=== PATIENT | male | born 1965 | race Caucasian/White ===

== ENCOUNTER 2023-05-21 10:58 | Inpatient (IN) | payer OTHER ==
[2023-05-21] MEDS ORDERED: KETOROLAC 15 MG/ML 1 ML VIAL IVP STA ×2 (11:57→12:55)
[2023-05-21] MEDS ORDERED: ONDANSETRON 4 MG/2 ML VIAL IVP STA (11:57)
[2023-05-21] MEDS ORDERED: HYDROmorphone 0.5 MG/0.5 ML SYRINGE IVP STA ×2 (11:57→12:56)
[2023-05-21] MEDS ORDERED: ACETAMINOPHEN TAB 325 MG TAB PO STA (11:57)
[2023-05-21] MEDS ORDERED: SODIUM CHLORIDE 0.9% 1,000 ML IV ONE ×2 (11:57→13:47)
--- NOTE | 2023-05-21 12:01 | ED ---
General Adult HPI - General Chief complaint: Neck Pain/Injury Stated complaint: back pain Time Seen by Provider: 05/21/23 11:20 Source: patient, RN notes reviewed Mode of arrival: ambulatory Limitations: no limitations - History of Present Illness Initial comments: This a 57-year-old male presents emergency Department with chief complaint of neck, left wrist pain, right knee pain. Patient states that he initially thought he just injured himself by falling into a hole. He felt that he started himself. Patient states she's been exhibiting viral type illness symptoms including fevers chills body aches. He is now complaining of left wrist, finger pain and swelling. Patient states she has a very stiff neck that hurts to move denies any symptoms headache. He complains of right knee pain and swelling. Patient has a history of diabetes. He denies any other system past medical history. Patient states nothing is helping his pain is been taken Motrin at home. - Related Data Home Medications Medication Instructions Recorded Confirmed No Known Home Medications 05/21/23 05/21/23 Allergies Allergy/AdvReac Type Severity Reaction Status Date / Time No Known Allergies Allergy Verified 05/21/23 16:28 Review of Systems ROS Statement: Those systems with pertinent positive or pertinent negative responses have been documented in the HPI. ROS Other: All systems not noted in ROS Statement are negative. Past Medical History Past Medical History: Diabetes Mellitus History of Any Multi-Drug Resistant Organisms: None Reported Past Surgical History: No Surgical Hx Reported Past Psychological History: No Psychological Hx Reported Smoking Status: Current every day smoker Past Alcohol Use History: Occasional Past Drug Use History: None Reported General Exam Limitations: no limitations General appearance: alert, in no apparent distress Head exam: Present: atraumatic, normocephalic, normal inspection Eye exam: Present: normal appearance, PERRL, EOMI. Absent: scleral icterus, conjunctival injection, periorbital swelling ENT exam: Present: normal exam, normal oropharynx, mucous membranes moist Neck exam: Present: normal inspection, tenderness. Absent: meningismus, full ROM (Pain with range of motion), lymphadenopathy Respiratory exam: Present: normal lung sounds bilaterally. Absent: respiratory distress, wheezes, rales, rhonchi, stridor Cardiovascular Exam: Present: normal rhythm, tachycardia, normal heart sounds. Absent: systolic murmur, diastolic murmur, rubs, gallop, clicks GI/Abdominal exam: Present: soft, normal bowel sounds. Absent: distended, tenderness, guarding, rebound, rigid Extremities exam: Present: other (Left wrist, finger swelling noted no erythema, right knee swelling and tenderness palpation) Neurological exam: Present: alert, oriented X3, CN II-XII intact, reflexes normal. Absent: motor sensory deficit Skin exam: Present: warm, dry, intact, normal color. Absent: rash Course Vital Signs 05/21/23 05/21/23 05/21/23 11:01 12:22 12:23 Temperature 97.8 F 100.6 F H Pulse Rate 112 H Respiratory 20 Rate Blood Pressure 146/62 152/90 O2 Sat by Pulse 100 100 Oximetry 05/21/23 05/21/23 05/21/23 13:00 14:00 15:00 Temperature 99.0 F Pulse Rate Respiratory Rate Blood Pressure 152/90 147/89 126/78 O2 Sat by Pulse 100 96 98 Oximetry 05/21/23 16:00 Temperature 98.4 F Pulse Rate Respiratory Rate Blood Pressure 125/80 O2 Sat by Pulse 100 Oximetry Medical Decision Making - Medical Decision Making Was pt. sent in by a medical professional or institution (, PA, CERTIFIED NOVELL ENGINEER, urgent care, hospital, or intermediate...) When possible be specific @ -No Did you speak to anyone other than the patient for history (EMS, parent, family, police, friend...)? What history was obtained from this source @ -No Did you review nursing and triage notes (agree or disagree)? Why? @ -I reviewed and agree with nursing and triage notes Were old charts reviewed (outside hosp., previous admission, EMS record, old EKG, old radiological studies, urgent care reports/EKG's, intermediate records)? Report findings @ -No old charts were reviewed Differential Diagnosis (chest pain, altered mental status, abdominal pain women, abdominal pain men, vaginal bleeding, weakness, fever, dyspnea, syncope, headache, dizziness, GI bleed, back pain, seizure, CVA, palpatations, mental health, musculoskeletal)? @ -nDifferential Fever: Pneumonia, viral URI, endocarditis, myocarditis, pericarditis, otitis, sinusitis, peritonsillar Abscess, retropharyngeal Abscess, epiglottitis, peritonitis, appendicitis, Jazmyn cystitis, diverticulitis, hepatitis, colitis, UTI, , pyelonephritis, prostatitis, epididymitis, meningitis, encephalitis, pulmonary embolism, CVA, thyroid storm, pancreatitis, adrenal crisis, cavernous sinus thrombosis, this is not meant to be an all-inclusive list. ble EKG interpreted by me (3pts min.). @ -As above X-rays interpreted by me (1pt min.). @ -None done CT interpreted by me (1pt min.). @ -None done U/S interpreted by me (1pt. min.). @ -None done What testing was considered but not performed or refused? (CT, X-rays, U/S, labs)? Why? @ -None What meds were considered but not given or refused? Why? @ -None Did you discuss the management of the patient with other professionals (professionals i.e. , PA, CERTIFIED NOVELL ENGINEER, lab, RT, psych nurse, social organization professor, restoration silversmith, teacher, energy control officer, geriatric case manager)? Give summary @ -Dr. Diego admission given patient's clinical presentation. Was smoking cessation discussed for >3mins.? @ -No Was critical care preformed (if so, how long)? @ -No Were there social determinants of health that impacted care today? How? (Homelessness, low income, unemployed, alcoholism, drug addiction, transportation, low edu. Level, literacy, decrease access to med. care, fci, rehab)? @ -No Was there de-escalation of care discussed even if they declined (Discuss DNR or withdrawal of care, Hospice)? DNR status @ -No What co-morbidities impacted this encounter? (DM, HTN, Smoking, COPD, CAD, Cancer, CVA, ARF, Chemo, Hep., AIDS, mental health diagnosis, sleep apnea, morbid obesity)? @ -Diabetes Was patient admitted / discharged? Hospital course, mention meds given and rou te, prescriptions, significant lab abnormalities, going to OR and other pertinent info. @ -Admitted patient is noted to have fever, significant leukocytosis, lactic acidosis. Patient has multiple joint pain and swelling this may be post infectious inflammatory versus other concerns. Patient will be admitted for observation and further workup Undiagnosed new problem with uncertain prognosis? @ -No Drug Therapy requiring intensive monitoring for toxicity (Heparin, Nitro, Insulin, Cardizem)? @ -No Were any procedures done? @ -No Diagnosis/symptom? @ -Postinfectious polyarthralgia Acute, or Chronic, or Acute on Chronic? @ -Acute Uncomplicated (without systemic symptoms) or Complicated (systemic symptoms)? @ -Complicated. Side effects of treatment? @ -No Exacerbation, Progression, or Severe Exacerbation? @ -No Poses a threat to life or bodily function? How? (Chest pain, [place], [place], pneumonia, PE, COPD, DKA, ARF, appy, cholecystitis, CVA, Diverticulitis, Homicidal, Suicidal, threat to staff... and all critical care pts) @ -No - Lab Data Result diagrams: 05/21/23 12:05 05/21/23 12:05 Lab Results 05/21/23 05/21/23 05/21/23 Range/Units 12:05 12:05 12:05 WBC 15.2 H (3.8-10.6) k/uL RBC 5.31 (4.30-5.90) m/uL Hgb 16.7 (13.0-17.5) gm/dL Hct 45.7 (39.0-53.0) % MCV 86.1 (80.0-100.0) fL MCH 31.5 (25.0-35.0) pg MCHC 36.5 (31.0-37.0) g/dL RDW 12.9 (11.5-15.5) % Plt Count 270 (150-450) k/uL MPV 8.1 Neutrophils % 88 % Lymphocytes % 6 % Monocytes % 4 % Eosinophils % 1 % Basophils % 0 % Neutrophils # 13.5 H (1.3-7.7) k/uL Lymphocytes # 0.8 L (1.0-4.8) k/uL Monocytes # 0.7 (0-1.0) k/uL Eosinophils # 0.1 (0-0.7) k/uL Basophils # 0.1 (0-0.2) k/uL Sodium 132 L (137-145) mmol/L Potassium 3.8 (3.5-5.1) mmol/L Chloride 96 L (98-107) mmol/L Carbon Dioxide 18 L (22-30) mmol/L Anion Gap 18 mmol/L BUN 16 (9-20) mg/dL Creatinine 0.61 L (0.66-1.25) mg/dL Est GFR (CKD-EPI)AfAm >90 (>60 ml/min/1.73 sqM) Est GFR (CKD-EPI)NonAf >90 (>60 ml/min/1.73 sqM) Glucose 295 H (74-99) mg/dL Lactic Ac Sepsis Rflx Plasma Lactic Acid Adin 2.2 H* (0.7-2.0) mmol/L Calcium 9.7 (8.4-10.2) mg/dL Total Bilirubin 1.3 (0.2-1.3) mg/dL AST 27 (17-59) U/L ALT 45 (4-49) U/L Alkaline Phosphatase 164 H (38-126) U/L Total Protein 7.5 (6.3-8.2) g/dL Albumin 4.1 (3.5-5.0) g/dL Urine Color Urine Appearance (Clear) Urine pH (5.0-8.0) Ur Specific [place] (1.001-1.035) Urine Protein (Negative) Urine Glucose (UA) (Negative) Urine Ketones (Negative) Urine Blood (Negative) Urine Nitrite (Negative) Urine Bilirubin (Negative) Urine Urobilinogen (<2.0) mg/dL Ur Leukocyte Esterase (Negative) Urine RBC (0-5) /hpf Urine WBC (0-5) /hpf Urine Mucus (None) /hpf Heterophile Antibody (Negative) Influenza Type A (PCR) (Not Detectd) Influenza Type B (PCR) (Not Detectd) RSV (PCR) (Not Detectd) SARS-CoV-2 (PCR) (Not Detectd) Group A Strep (PCR) (Not Detectd) 05/21/23 05/21/23 05/21/23 Range/Units 12:05 12:05 12:22 WBC (3.8-10.6) k/uL RBC (4.30-5.90) m/uL Hgb (13.0-17.5) gm/dL Hct (39.0-53.0) % MCV (80.0-100.0) fL MCH (25.0-35.0) pg MCHC (31.0-37.0) g/dL RDW (11.5-15.5) % Plt Count (150-450) k/uL MPV Neutrophils % % Lymphocytes % % Monocytes % % Eosinophils % % Basophils % % Neutrophils # (1.3-7.7) k/uL Lymphocytes # (1.0-4.8) k/uL Monocytes # (0-1.0) k/uL Eosinophils # (0-0.7) k/uL Basophils # (0-0.2) k/uL Sodium (137-145) mmol/L Potassium (3.5-5.1) mmol/L Chloride (98-107) mmol/L Carbon Dioxide (22-30) mmol/L Anion Gap mmol/L BUN (9-20) mg/dL Creatinine (0.66-1.25) mg/dL Est GFR (CKD-EPI)AfAm (>60 ml/min/1.73 sqM) Est GFR (CKD-EPI)NonAf (>60 ml/min/1.73 sqM) Glucose (74-99) mg/dL Lactic Ac Sepsis Rflx Plasma Lactic Acid Adin (0.7-2.0) mmol/L Calcium (8.4-10.2) mg/dL Total Bilirubin (0.2-1.3) mg/dL AST (17-59) U/L ALT (4-49) U/L Alkaline Phosphatase (38-126) U/L Total Protein (6.3-8.2) g/dL Albumin (3.5-5.0) g/dL Urine Color Urine Appearance (Clear) Urine pH (5.0-8.0) Ur Specific [place] (1.001-1.035) Urine Protein (Negative) Urine Glucose (UA) (Negative) Urine Ketones (Negative) Urine Blood (Negative) Urine Nitrite (Negative) Urine Bilirubin (Negative) Urine Urobilinogen (<2.0) mg/dL Ur Leukocyte Esterase (Negative) Urine RBC (0-5) /hpf Urine WBC (0-5) /hpf Urine Mucus (None) /hpf Heterophile Antibody Negative (Negative) Influenza Type A (PCR) Not Detected (Not Detectd) Influenza Type B (PCR) Not Detected (Not Detectd) RSV (PCR) Not Detected (Not Detectd) SARS-CoV-2 (PCR) Not Detected (Not Detectd) Group A Strep (PCR) NOT DETECTED (Not Detectd) 05/21/23 05/21/23 05/21/23 Range/Units 12:33 13:06 15:00 WBC (3.8-10.6) k/uL RBC (4.30-5.90) m/uL Hgb (13.0-17.5) gm/dL Hct (39.0-53.0) % MCV (80.0-100.0) fL MCH (25.0-35.0) pg MCHC (31.0-37.0) g/dL RDW (11.5-15.5) % Plt Count (150-450) k/uL MPV Neutrophils % % Lymphocytes % % Monocytes % % Eosinophils % % Basophils % % Neutrophils # (1.3-7.7) k/uL Lymphocytes # (1.0-4.8) k/uL Monocytes # (0-1.0) k/uL Eosinophils # (0-0.7) k/uL Basophils # (0-0.2) k/uL Sodium (137-145) mmol/L Potassium (3.5-5.1) mmol/L Chloride (98-107) mmol/L Carbon Dioxide (22-30) mmol/L Anion Gap mmol/L BUN (9-20) mg/dL Creatinine (0.66-1.25) mg/dL Est GFR (CKD-EPI)AfAm (>60 ml/min/1.73 sqM) Est GFR (CKD-EPI)NonAf (>60 ml/min/1.73 sqM) Glucose (74-99) mg/dL Lactic Ac Sepsis Rflx Y Plasma Lactic Acid Adin 1.1 (0.7-2.0) mmol/L Calcium (8.4-10.2) mg/dL Total Bilirubin (0.2-1.3) mg/dL AST (17-59) U/L ALT (4-49) U/L Alkaline Phosphatase (38-126) U/L Total Protein (6.3-8.2) g/dL Albumin (3.5-5.0) g/dL Urine Color Yellow Urine Appearance Clear (Clear) Urine pH 5.5 (5.0-8.0) Ur Specific [place] 1.035 (1.001-1.035) Urine Protein 1+ H (Negative) Urine Glucose (UA) 4+ H (Negative) Urine Ketones 4+ H (Negative) Urine Blood Small H (Negative) Urine Nitrite Negative (Negative) Urine Bilirubin Negative (Negative) Urine Urobilinogen 2.0 (<2.0) mg/dL Ur Leukocyte Esterase Negative (Negative) Urine RBC 1 (0-5) /hpf Urine WBC 6 H (0-5) /hpf Urine Mucus Rare H (None) /hpf Heterophile Antibody (Negative) Influenza Type A (PCR) (Not Detectd) Influenza Type B (PCR) (Not Detectd) RSV (PCR) (Not Detectd) SARS-CoV-2 (PCR) (Not Detectd) Group A Strep (PCR) (Not Detectd) Disposition Clinical Impression: Polyarthritis, inflammatory, Fever of unknown origin Disposition: ADMITTED IP TO THIS HOSP Referrals: [facility],Clinic [Primary Care Provider] - 1-2 days Time of Disposition: 16:15
[2023-05-21 12:24] LABS: Basophils # (A) 0.1 k/uL (0-0.2); Basophils % (A) 0 %; Eosinophils # (A) 0.1 k/uL (0-0.7); Eosinophils % (A) 1 %; HCT 45.7 % (39.0-53.0); HGB 16.7 gm/dL (13.0-17.5); Lymphocytes # (A) 0.8 k/uL (1.0-4.8); Lymphocytes % (A) 6 %; MCH 31.5 pg (25.0-35.0); MCHC 36.5 g/dL (31.0-37.0); MCV 86.1 fL (80.0-100.0); Mean Platelet Volume 8.1; Monocytes # (A) 0.7 k/uL (0-1.0); Monocytes % (A) 4 %; Neutrophils # (A) 13.5 k/uL (1.3-7.7); Neutrophils % (A) 88 %; Platelet Count 270 k/uL (150-450); RBC 5.31 m/uL (4.30-5.90); RDW 12.9 % (11.5-15.5); WBC 15.2 k/uL (3.8-10.6)
[2023-05-21 12:30] LABS: ALT 45 U/L (4-49); AST 27 U/L (17-59); African American GFR (CKD) >90 (>60 ml/min/1.73 sqM); Albumin 4.1 g/dL (3.5-5.0); Alkaline Phosphatase 164 U/L (38-126); Anion Gap 18 mmol/L; Blood Urea Nitrogen 16 mg/dL (9-20); Calcium 9.7 mg/dL (8.4-10.2); Carbon Dioxide 18 mmol/L (22-30); Chloride 96 mmol/L (98-107); Glucose 295 mg/dL (74-99); Non-African American GFR(CKD) >90 (>60 ml/min/1.73 sqM); Potassium 3.8 mmol/L (3.5-5.1); Sodium 132 mmol/L (137-145); Total Bilirubin 1.3 mg/dL (0.2-1.3); Total Protein 7.5 g/dL (6.3-8.2)
[2023-05-21] MEDS ORDERED: ORPHENADRINE 30 MG/ML 2 ML VIAL IVP STA (12:56)
[2023-05-21 13:28] LABS: Appearance,Urine Clear (Clear); Bilirubin,Urine Negative (Negative); Blood,Urine Small (Negative); Color,Urine Yellow; Glucose,Urine (UA) 4+ (Negative); Leukocyte Esterase,Urine Negative (Negative); Mucus,Urine Rare /hpf; Nitrite,Urine Negative (Negative); PH, Urine 5.5 (5.0-8.0); Protein,Urine 1+ (Negative); RBC,Urine 1 /hpf (0-5); Specific Gravity,Urine 1.035 (1.001-1.035); WBC,Urine 6 /hpf (0-5)
[2023-05-21 13:30] LABS: Ketones,Urine 4+ (Negative)
[2023-05-21] MEDS ORDERED: ACETAMINOPHEN TAB 325 MG TAB PO PRN (16:15)
[2023-05-21] MEDS ORDERED: ONDANSETRON 4 MG/2 ML VIAL IVP PRN (16:15)
[2023-05-21] MEDS ORDERED: NALOXONE 0.4 MG/ML 1 ML VIAL IV PRN (16:15)
[2023-05-21] MEDS: SODIUM CHLORIDE 0.9% 1,000 ML IV SCH (16:32)
[2023-05-21] MEDS: KETOROLAC 15 MG/ML 1 ML VIAL IVP PRN (18:31)
--- NOTE | 2023-05-21 18:39 | P.HPIM ---
History of Present Illness H&P Date: 05/21/23 Chief Complaint: neck pain, polyarthralgia, fevers 57-year-old man with a medical history of uncontrolled diabetes with reported A1c of 10.8% isn't on any home medications presented for evaluation of polyarthralgias, neck pain, fevers. Patient says that 10 days ago he had an episode in which he slipped off a ladder and had a fall in which he hurt his legs. Since that time he started to develop gradual onset of neck pain which was sharp in nature and this radiated down his left arm than started to radiate down his right arm and into the pectoral region. He further started to develop hospital appetite, fevers, sweats, and 2 days ago started to notice swelling of his right knee, left dorsal aspect of his hands, elbows. He denies any rashes. He does report chills. He denies nausea, vomiting. He does report loss of appetite. He reports constipation. He denies cough, dyspnea, chest pain, palpitations, syncopal, presyncope, abdominal pain, diarrhea. He denies numbness/weakness of extremities. In the emergency room, patient was afebrile, 127/83, heart rate 114, 98% on room air. CBC demonstrated leukocytosis of 15.2, predominantly neutrophils. Basic metabolic panel showed sodium of 132, chloride of 96, CO2 of 18, anion gap was 18, BUN was 16, creatinine is 0.61. Glucose is 295. Liver function tests showed alkaline phosphatase elevation of 164. ESR was 62, CRP was 23.6. UA showed 1+ protein, 4+ glucose, 4+ ketones, small amount of blood, 6 white blood cells, 1 red blood cell. Influenza A, B, RSV, Covid, group A strep were all negative. Heterophile antibody was negative. Case is discussed with the emergency room provider and decision was made to admit the patient to observation for further diagnostic workup. All Systems reviewed and pertinent positives and negatives noted in HPI, all other symptoms are negative Gen: in no apparent distress, resting comfortably in bed Eyes: PERRL, no scleral injection or icterus HENT: normocephalic, atraumatic, good hearing acuity, moist mucous membranes Neck: no tracheal deviation, full range of motion Resp: good air exchange, breathing comfortably with no accessory muscle use, no tactile fremitus, bilateral crackles in the bases CVS: good distal perfusion x 4, no pitting edema, regular rate and rhythm without murmurs GI: soft, NTTP, ND, no hepatosplenomegaly : no suprapubic tenderness, no CVAT, sanchez catheter not present MSK: no clubbing, no cyanosis, no noted contractures of extremities, Skin: no noted rashes, petechiae; temperature of skin is appropriate Neuro: moving all extremities without signs of weakness, CN II-XII intact Psych: cooperative, euthymic mood, insight and judgment intact Labs and Imaging as above Assessment: Fevers Neck Pain Polyarthralgia Leukocytosis Elevated ESR/CRP Diabetes, uncontrolled Plan: Vital signs reviewed and noted in the HPI Lab work reviewed and noted in the HPI Case was discussed with the Emergency Room provider and decision was made to admit the patient for fevers, neck pain, polyarthralgias The differential is broad: Infectious versus rheumatologic issues Ordered gonococcal urine, HIV Ordered blood cultures Ordered complement C3, C4, CH 50, SHAMIKA Ordered Lyme antibodies Chest x-ray ordered EKG ordered I will hold off on antibiotics at this time until workup is complete Pain control: Toradol 15 mg IV push every 6 hours when necessary, Addison 5/325 every 4 hours when necessary, Tylenol 650 mg every 6 when necessary Bowel regimen: Senokot-S 1 tab twice a day, MiraLAX 17 g daily PT/OT Patient is Full Code Past Medical History Past Medical History: Diabetes Mellitus History of Any Multi-Drug Resistant Organisms: None Reported Past Surgical History: No Surgical Hx Reported Past Psychological History: No Psychological Hx Reported Smoking Status: Current every day smoker Past Alcohol Use History: Occasional Past Drug Use History: None Reported Medications and Allergies Home Medications Medication Instructions Recorded Confirmed Type No Known Home Medications 05/21/23 05/21/23 History Allergies Allergy/AdvReac Type Severity Reaction Status Date / Time No Known Allergies Allergy Verified 05/21/23 16:28 Physical Exam Osteopathic Statement: *. No significant issues noted on an osteopathic struct ural exam other than those noted in the History and Physical/Consult. Vitals: Vital Signs Temp Pulse Resp BP Pulse Ox 05/21/23 17:00 98.6 F 74 16 110/80 05/21/23 16:00 98.4 F 125/80 100 05/21/23 15:00 126/78 98 05/21/23 14:00 147/89 96 05/21/23 13:00 99.0 F 152/90 100 05/21/23 12:23 100.6 F H 05/21/23 12:22 152/90 100 05/21/23 11:01 97.8 F 112 H 20 146/62 100 Intake and Output 05/21/23 05/21/23 05/21/23 06:59 14:59 22:59 Other: Weight 96.162 kg Results CBC & Chem 7: 05/21/23 12:05 05/21/23 12:05 Labs: Abnormal Lab Results - Last 24 Hours (Table) 05/21/23 05/21/23 05/21/23 Range/Units 12:05 12:05 12:05 WBC 15.2 H (3.8-10.6) k/uL Neutrophils # 13.5 H (1.3-7.7) k/uL Lymphocytes # 0.8 L (1.0-4.8) k/uL ESR (0-15) mm/hr Sodium 132 L (137-145) mmol/L Chloride 96 L (98-107) mmol/L Carbon Dioxide 18 L (22-30) mmol/L Creatinine 0.61 L (0.66-1.25) mg/dL Glucose 295 H (74-99) mg/dL Plasma Lactic Acid Adin 2.2 H* (0.7-2.0) mmol/L Alkaline Phosphatase 164 H (38-126) U/L C-Reactive Protein (<1.0) mg/dL Urine Protein (Negative) Urine Glucose (UA) (Negative) Urine Ketones (Negative) Urine Blood (Negative) Urine WBC (0-5) /hpf Urine Mucus (None) /hpf 05/21/23 05/21/23 05/21/23 Range/Units 12:05 13:06 16:31 WBC (3.8-10.6) k/uL Neutrophils # (1.3-7.7) k/uL Lymphocytes # (1.0-4.8) k/uL ESR 62 H (0-15) mm/hr Sodium (137-145) mmol/L Chloride (98-107) mmol/L Carbon Dioxide (22-30) mmol/L Creatinine (0.66-1.25) mg/dL Glucose (74-99) mg/dL Plasma Lactic Acid Adin (0.7-2.0) mmol/L Alkaline Phosphatase (38-126) U/L C-Reactive Protein 23.6 H (<1.0) mg/dL Urine Protein 1+ H (Negative) Urine Glucose (UA) 4+ H (Negative) Urine Ketones 4+ H (Negative) Urine Blood Small H (Negative) Urine WBC 6 H (0-5) /hpf Urine Mucus Rare H (None) /hpf
--- NOTE | 2023-05-21 19:21 | XR ---
EXAMINATION TYPE: XR chest 2V DATE OF EXAM: 05/21/2023 6:55 PM COMPARISON: None TECHNIQUE: XR chest 2V Frontal and lateral views of the chest. CLINICAL INDICATION:Male, 57 years old with history of Crackles; FINDINGS: Lungs/Pleura: Increased densities are seen projecting over the spine lateral view. There is no eviden ce of pleural effusion, focal consolidation, or pneumothorax. Pulmonary vascularity: Unremarkable. Heart/mediastinum: Cardiomediastinal silhouette is unremarkable. Musculoskeletal: No acute osseous pathology. IMPRESSION: Lower lobe pneumonia seen best appreciated on lateral view compatible with pneumonia..
--- NOTE | 2023-05-21 19:43 | XR ---
EXAMINATION TYPE: XR cervical spine comp DATE OF EXAM: 05/21/2023 7:17 PM INDICATION: Patient age:Male; 57 years old; Reason for study: neck pain; PHH. COMPARISON: None TECHNIQUE: The cervical spine was imaged in frontal, lateral, odontoid and bilateral oblique. FINDINGS: The osseous structures show normal alignment without evidence of an acute fracture. There are osteoph ytes noted throughout the cervical spine on the anterior and lateral aspects of the vertebral bodies. The intervertebral disk spaces are narrowed at multiple levels. Pedicles are intact. Soft tissues a re within normal limits. The odontoid appears intact. IMPRESSION: 1. No fracture or dislocation. 2. Moderate degenerative disc disease changes of the cervical spine.
[2023-05-21] MEDS: HYDROcodone/APAP 5-325MG 1 EACH TAB PO PRN (19:56)
[2023-05-21] MEDS: SENNOSIDES-DOCUSATE SODIUM 1 EACH TAB PO SCH (19:57)
[2023-05-21 20:40] LABS: Glucose,Whole Blood 351 mg/dL (70-110)
[2023-05-21] MEDS ORDERED: INSULIN ASPART (NovoLOG) 100 UNIT/ML VIAL SQ ONE (21:37)
[2023-05-21] MEDS ORDERED: MORPHINE SULFATE 2 MG/ML SYRINGE IVP STA (22:00)
[2023-05-22 02:42] LABS: Glucose,Whole Blood 287 mg/dL (70-110)
[2023-05-22] MEDS: SODIUM CHLORIDE 0.9% 1,000 ML IV SCH (06:01)
[2023-05-22] MEDS: KETOROLAC 15 MG/ML 1 ML VIAL IVP PRN ×2 (06:02→12:27)
[2023-05-22 07:22] LABS: Glucose,Whole Blood 275 mg/dL (70-110)
[2023-05-22] MEDS ORDERED: INSULIN ASPART (NovoLOG) 100 UNIT/ML VIAL SQ SCH (07:30)
[2023-05-22] MEDS: INSULIN ASPART (NovoLOG) 100 UNIT/ML VIAL SQ SCH ×7 (08:28→20:59)
[2023-05-22] MEDS: SENNOSIDES-DOCUSATE SODIUM 1 EACH TAB PO SCH ×2 (08:28→20:59)
[2023-05-22] MEDS: polyethylene glycoL 3350 17 GM POWD.PACK PO SCH (08:29)
[2023-05-22 09:14] LABS: Hepatitis B Core IgM Nonreactive; Hepatitis B Surface Antigen Nonreactive; Hepatitis C IgG Antibody Nonreactive
[2023-05-22] MEDS ORDERED: AZITHROMYCIN 500 MG in SODIUM CHLORIDE 0.9% 250 ML IVPB SCH (09:15)
[2023-05-22 09:24] LABS: Hepatitis A Antibody IgM Nonreactive
[2023-05-22 10:50] LABS: Cyclic Citrull Pep IgG Unit <1.5 U/mL (<=3.9); Cyclic Citrullinated Pep IgG Negative
[2023-05-22] MEDS: HYDROcodone/APAP 5-325MG 1 EACH TAB PO PRN ×3 (11:10→20:56)
--- NOTE | 2023-05-22 11:37 | P.PN ---
Subjective Progress Note Date: 05/22/23 Pt has no new complaints. Pain is better but still present. Had fevers up to 101.2. CXR shows LLL pneumonia Gen: in no apparent distress, resting comfortably in bed Eyes: PERRL, no scleral injection or icterus HENT: normocephalic, atraumatic, good hearing acuity, moist mucous membranes Neck: no tracheal deviation, full range of motion Resp: good air exchange, breathing comfortably with no accessory muscle use, no tactile fremitus, bilateral crackles in the bases CVS: good distal perfusion x 4, no pitting edema, regular rate and rhythm without murmurs GI: soft, NTTP, ND, no hepatosplenomegaly : no suprapubic tenderness, no CVAT, sanchez catheter not present MSK: no clubbing, no cyanosis, no noted contractures of extremities, Skin: no noted rashes, petechiae; temperature of skin is appropriate Neuro: moving all extremities without signs of weakness, CN II-XII intact Psych: cooperative, euthymic mood, insight and judgment intact Hospital Course: 57-year-old man with a medical history of uncontrolled diabetes with reported A1c of 10.8% isn't on any home medications presented for evaluation of polyarthralgias, neck pain, fevers. In the emergency room, patient was afebrile, 127/83, heart rate 114, 98% on room air. CBC demonstrated leukocytosis of 15.2, predominantly neutrophils. Basic metabolic panel showed sodium of 132, chloride of 96, CO2 of 18, anion gap was 18, BUN was 16, c reatinine is 0.61. Glucose is 295. Liver function tests showed alkaline phosphatase elevation of 164. ESR was 62, CRP was 23.6. UA showed 1+ protein, 4+ glucose, 4+ ketones, small amount of blood, 6 white blood cells, 1 red blood cell. Influenza A, B, RSV, Covid, group A strep were all negative. Heterophile antibody was negative. Case is discussed with the emergency room provider and decision was made to admit the patient to observation for further diagnostic workup. Assessment: Community Acquired Pneumonia Neck Pain Polyarthralgia Leukocytosis Elevated ESR/CRP Diabetes, uncontrolled Plan: RF is 15, CCP is < 1.5 (negative), C3/C4 reviewed and normal. Lyme 0.639, negative Treponema non-reactive Hep B/C negative. CXR personally interpreted, retrocardiac opacity on left Cervical spine XR = DDD The differential is broad: Infectious versus rheumatologic issues Ordered gonococcal urine, HIV pending Ordered blood cultures pending SHAMIKA pending Start ceftriaxone/azithromycin for pneumonia Pain control: Toradol 15 mg IV push every 6 hours when necessary, [place] 5/325 every 4 hours when necessary, Tylenol 650 mg every 6 when necessary Bowel regimen: Senokot-S 1 tab twice a day, MiraLAX 17 g daily PT/OT Patient is Full Code Objective - Vital Signs Vital signs: Vital Signs Temp 98.6 F 05/22/23 11:15 Pulse 120 H 05/22/23 11:15 Resp 18 05/22/23 11:15 BP 132/79 05/22/23 11:15 Pulse Ox 92 L 05/22/23 11:15 FiO2 Intake & Output 05/21/23 05/22/23 05/22/23 18:59 06:59 18:59 Intake Total 240 Output Total 450 300 Balance -210 -300 Weight 96.162 kg Intake: Oral 240 Output: Urine 450 300 Other: Voiding Method Toilet Toilet # Voids 1 - Labs CBC & Chem 7: 05/21/23 12:05 05/21/23 12:05 Labs: Abnormal Lab Results - Last 24 Hours (Table) 05/21/23 05/21/23 05/21/23 Range/Units 12:05 12:05 12:05 WBC 15.2 H (3.8-10.6) k/uL Neutrophils # 13.5 H (1.3-7.7) k/uL Lymphocytes # 0.8 L (1.0-4.8) k/uL ESR (0-15) mm/hr Sodium 132 L (137-145) mmol/L Chloride 96 L (98-107) mmol/L Carbon Dioxide 18 L (22-30) mmol/L Creatinine 0.61 L (0.66-1.25) mg/dL Glucose 295 H (74-99) mg/dL POC Glucose (mg/dL) (70-110) mg/dL Plasma Lactic Acid Adin 2.2 H* (0.7-2.0) mmol/L Alkaline Phosphatase 164 H (38-126) U/L C-Reactive Protein (<1.0) mg/dL Urine Protein (Negative) Urine Glucose (UA) (Negative) Urine Ketones (Negative) Urine Blood (Negative) Urine WBC (0-5) /hpf Urine Mucus (None) /hpf 05/21/23 05/21/23 05/21/23 Range/Units 12:05 13:06 16:31 WBC (3.8-10.6) k/uL Neutrophils # (1.3-7.7) k/uL Lymphocytes # (1.0-4.8) k/uL ESR 62 H (0-15) mm/hr Sodium (137-145) mmol/L Chloride (98-107) mmol/L Carbon Dioxide (22-30) mmol/L Creatinine (0.66-1.25) mg/dL Glucose (74-99) mg/dL POC Glucose (mg/dL) (70-110) mg/dL Plasma Lactic Acid Adin (0.7-2.0) mmol/L Alkaline Phosphatase (38-126) U/L C-Reactive Protein 23.6 H (<1.0) mg/dL Urine Protein 1+ H (Negative) Urine Glucose (UA) 4+ H (Negative) Urine Ketones 4+ H (Negative) Urine Blood Small H (Negative) Urine WBC 6 H (0-5) /hpf Urine Mucus Rare H (None) /hpf 05/21/23 05/22/23 05/22/23 Range/Units 20:38 02:34 07:21 WBC (3.8-10.6) k/uL Neutrophils # (1.3-7.7) k/uL Lymphocytes # (1.0-4.8) k/uL ESR (0-15) mm/hr Sodium (137-145) mmol/L Chloride (98-107) mmol/L Carbon Dioxide (22-30) mmol/L Creatinine (0.66-1.25) mg/dL Glucose (74-99) mg/dL POC Glucose (mg/dL) 351 H 287 H 275 H (70-110) mg/dL Plasma Lactic Acid Adin (0.7-2.0) mmol/L Alkaline Phosphatase (38-126) U/L C-Reactive Protein (<1.0) mg/dL Urine Protein (Negative) Urine Glucose (UA) (Negative) Urine Ketones (Negative) Urine Blood (Negative) Urine WBC (0-5) /hpf Urine Mucus (None) /hpf
[2023-05-22 11:53] LABS: Glucose,Whole Blood 249 mg/dL (70-110)
[2023-05-22 14:28] LABS: BUN/Creat Ratio 20.14 Ratio (12.00-20.00); Blood Urea Nitrogen 14.1 mg/dL (9.0-27.0); Calcium 8.5 mg/dL (8.7-10.3); Carbon Dioxide 15.6 mmol/L (21.6-31.8); Chloride 103 mmol/L (96-109); Glucose 272 mg/dL (70-110); Magnesium 1.9 mg/dL (1.5-2.4); Sodium 136 mmol/L (135-145)
[2023-05-22] MEDS ORDERED: VANCOMYCIN IV PER PHARMACY 1 EACH MISC MISCELLANE PRN (14:50)
[2023-05-22 14:56] LABS: Basophils # (A) 0.08 X 10*3/uL (0.00-0.10); Basophils % (A) 0.5 %; Eosinophils # (A) 0.01 X 10*3/uL (0.04-0.35); Eosinophils % (A) 0.1 %; HCT 39.1 % (39.6-50.0); HGB 13.4 d/dL (13.0-17.0); Lymphocytes # (A) 0.97 X 10*3/uL (0.90-5.00); Lymphocytes % (A) 5.7 %; MCH 30.2 pg (27.0-32.0); MCHC 34.3 d/dL (32.0-37.0); MCV 88.1 FL (80.0-97.0); Mean Platelet Volume 10.6 FL (9.5-12.2); Monocytes # (A) 1.26 X 10*3/uL (0.20-1.00); Monocytes % (A) 7.4 %; NRBC Per 100 WBC 0 X 10*3/uL (0.00-0.01); Neutrophils # (A) 14.45 X 10*3/uL (1.80-7.70); Neutrophils % (A) 85.3 %; Platelet Count 325 X 10*3/uL (140-440); RBC 4.44 X 10*6/uL (4.40-5.60); RDW 12.7 % (11.5-14.5); WBC 16.94 X 10*3/uL (4.50-10.00)
[2023-05-22] MEDS ORDERED: VANCOMYCIN 1,500 MG in SODIUM CHLORIDE 0.9% 500 ML 500 ML IVPB SCH (16:00)
[2023-05-22 16:27] LABS: HIV 2 AB Non-Reactive (Non-Reactive); HIV AB P24 Non-Reactive (Non-Reactive); HIV P24 AG Non-Reactive (Non-Reactive)
--- NOTE | 2023-05-22 16:59 | CA ---
Transthoracic Echo Report Name: Jose Lara Age: 57 Gender: M : 1965 Exam Date: 05/22/2023 15:14 Exam Location: [facility] Ht (in): 72 Wt (lb): 212 Ordering Physician: Jerry Diego MD Attending/Referring Phys: Communications Technician Katerine Haque [facility] Procedure CPT: Indications: bacteremia Cardiac Hx: Technical Quality: Technically difficult study Contrast 1: [place] Total Dose (mL): 1 Contrast 2: Total Dose (mL): MEASUREMENTS (Male / Female) Normal Values 2D ECHO LV Diastolic Diameter PLAX 5.1 cm 4.2 - 5.9 / 3.9 - 5.3 cm LV Systolic Diameter PLAX 4.1 cm IVS Diastolic Thickness 0.9 cm 0.6 - 1.0 / 0.6 - 0.9 cm LVPW Diastolic Thickness 0.8 cm 0.6 - 1.0 / 0.6 - 0.9 cm LV Relative Wall Thickness 0.3 LV Diastolic Volume MOD BP 164.0 cm??? 67 - 155 / 56 - 104 cm??? LV Systolic Volume MOD BP 99.3 cm??? 22 - 58 / 19 - 49 cm??? LV Ejection Fraction MOD BP 39.5 % >= 55 % LV Cardiac Index MOD BP 3628.1 cm???/min???m??? LV Diastolic Volume MOD 4C 169.1 cm??? LV Systolic Volume MOD 4C 103.1 cm??? LV Ejection Fraction MOD 4C 39.0 % LV Cardiac Index MOD 4C 3703.1 cm???/min???m??? LV Diastolic Length 4C 8.8 cm LV Systolic Length 4C 8.0 cm LV Diastolic Volume MOD 2C 154.0 cm??? LV Systolic Volume MOD 2C 97.2 cm??? LV Ejection Fraction MOD 2C 36.9 % LV Cardiac Index MOD 2C 3182.7 cm???/min???m??? LV Diastolic Length 2C 8.5 cm LV Systolic Length 2C 7.9 cm Ascending Aorta Diameter 2.8 cm M-MODE Aortic Root Diameter MM 2.8 cm LA Systolic Diameter MM 4.7 cm LA Ao Ratio MM 1.6 AV Cusp Separation MM 2.3 cm DOPPLER AV Peak Velocity 108.5 cm/s AV Peak Gradient 4.7 mmHg AV Mean Velocity 84.6 cm/s AV Mean Gradient 3.1 mmHg AV Velocity Time Integral 16.7 cm LVOT Peak Velocity 82.0 cm/s LVOT Peak Gradient 2.7 mmHg LVOT Velocity Time Integral 14.2 cm Mitral E Point Velocity 45.6 cm/s Mitral A Point Velocity 55.2 cm/s Mitral E to A Ratio 0.8 MV Deceleration Time 113.1 ms LV E' Lateral Velocity 8.4 cm/s Mitral E to LV E' Lateral Ratio 5.4 LV E' Septal Velocity 7.7 cm/s Mitral E to LV E' Septal Ratio 5.9 TR Peak Velocity 244.4 cm/s TR Peak Gradient 23.9 mmHg Right Atrial Pressure 15.0 mmHg Pulmonary Artery Systolic Pressu 38.9 mmHg Right Ventricular Systolic Press 38.9 mmHg FINDINGS Left Ventricle Mildly increased left ventricular diastolic volume. Severely increased left ventricular systolic volume. Moderately decreased left ventricular ejection fraction. Left ventricular wall thickness normal. Left ventricular ejection fraction is estimated at 30-35%. [place] hypokinetic. Hypokinetic mid-apical inferior wall. Right Ventricle Moderate right ventricular dilatation. Mild pulmonary hypertension. Right Atrium Normal right atrial size. Left Atrium Normal left atrial size. Mitral Valve Structurally normal mitral valve. Trace mitral regurgitation. No evidence of vegetation on the mitral valve. Aortic Valve Aortic valve not well visualized. No aortic regurgitation. No evidence of vegetation on the aortic valve. Tricuspid Valve Structurally normal tricuspid valve. Trace tricuspid regurgitation. No evidence of tricuspid valve vegetation. Pulmonic Valve Pulmonic valve not well visualized. Pericardium No pericardial effusion. Aorta Normal size aortic root and proximal ascending aorta. CONCLUSIONS Technically suboptimal study secondary to poor echo windows There is severe LV systolic dysfunction with an ejection fraction of 30-35% with hypokinesis(involving the apex Consider transesophageal echo to definitively rule out vegetation Mild pulmonary hypertension Previewed by: Dr. Hussain Sanchez MD (Electronically Signed) Final Date: 22 May 2023 16:59
[2023-05-22 17:11] LABS: Glucose,Whole Blood 174 mg/dL (70-110)
[2023-05-22 20:41] LABS: Glucose,Whole Blood 136 mg/dL (70-110)
--- NOTE | 2023-05-22 22:05 | P.CONS ---
History of Present Illness - Reason for Consult Consult date: 05/22/23 - History of Present Illness Patient is a 57-year male with a past medical history significant for diabetes mellitus currently everyday smoker patient did have a fall from a ladder about 10 days ago with the patient fell and hurt his legs since then the patient did have gradual onset of neck pain with some radiation to the left arm as well as into the right pectoral region patient's symptom has been getting wor se also developing decreased appetite fever sweats and started having a cough which has been mild to moderate intensity with occasional sputum production patient denies any nausea vomiting no abdominal pain or any diarrhea patient on presentation to the hospital did have a fever 100.6 F and did have another fever of 101.7 F at 2 in the morning patient was tachycardic mildly hypoxic within for supplemental oxygen, patient did have a white count of 16.94 with a left shift creatinine has been 0.7 urine has been negative HIV hepatitis B C Lyme and treponema influenza and COVID testing were negative patient did have blood cultures drawn come back positive with gram-positive cocci that has promp haven this infectious disease consultation patient did have a chest x-ray no lobar pneumonia but seen on the lateral view x-ray of cervical spine no fracture or dislocation moderate degenerative disc disease, patient is currently on a combination of ceftriaxone and vancomycin Zithromax was discontinued Past Medical History Past Medical History: Diabetes Mellitus History of Any Multi-Drug Resistant Organisms: None Reported Past Surgical History: No Surgical Hx Reported Past Psychological History: No Psychological Hx Reported Smoking Status: Current every day smoker Past Alcohol Use History: Occasional Past Drug Use History: None Reported Medications and Allergies Home Medications Medication Instructions Recorded Confirmed Type No Known Home Medications 05/21/23 05/21/23 History Allergies Allergy/AdvReac Type Severity Reaction Status Date / Time No Known Allergies Allergy Verified 05/21/23 16:28 Physical Exam Vitals: Vital Signs Temp Pulse Pulse Resp BP BP Pulse Ox 05/22/23 11:15 98.6 F 120 H 18 132/79 92 L 05/22/23 07:17 98.4 F 110 H 18 111/70 94 L 05/22/23 03:29 98.1 F 110 H 93 L 05/22/23 02:31 101.7 F H 138 H 18 143/80 90 L 05/21/23 20:07 18 05/21/23 18:54 99 F 116 H 18 129/79 99 05/21/23 18:06 98.3 F 114 H 18 127/83 98 05/21/23 17:00 98.6 F 74 16 110/80 Intake and Output 05/22/23 05/22/23 05/22/23 06:59 14:59 22:59 Intake Total 240 Output Total 450 300 Balance -210 -300 Intake: Oral 240 Output: Urine 450 300 Other: Voiding Method Toilet Results CBC & Chem 7: 05/22/23 06:16 05/22/23 06:16 Labs: Abnormal Lab Results - Last 24 Hours (Table) 05/21/23 05/21/23 05/21/23 Range/Units 12:05 16:31 20:38 WBC (4.50-10.00) X 10*3/uL Hct (39.6-50.0) % Neutrophils # (1.80-7.70) X 10*3/uL Monocytes # (0.20-1.00) X 10*3/uL Eosinophils # (0.04-0.35) X 10*3/uL ESR 62 H (0-15) mm/hr Carbon Dioxide (21.6-31.8) mmol/L Anion Gap (4.00-12.00) mmol/L BUN/Creatinine Ratio (12.00-20.00) Ratio Glucose (70-110) mg/dL POC Glucose (mg/dL) 351 H (70-110) mg/dL Calcium (8.7-10.3) mg/dL C-Reactive Protein 23.6 H (<1.0) mg/dL 05/22/23 05/22/23 05/22/23 Range/Units 02:34 06:16 06:16 WBC 16.94 H (4.50-10.00) X 10*3/uL Hct 39.1 L (39.6-50.0) % Neutrophils # 14.45 H (1.80-7.70) X 10*3/uL Monocytes # 1.26 H (0.20-1.00) X 10*3/uL Eosinophils # 0.01 L (0.04-0.35) X 10*3/uL ESR (0-15) mm/hr Carbon Dioxide 15.6 L (21.6-31.8) mmol/L Anion Gap 17.40 H (4.00-12.00) mmol/L BUN/Creatinine Ratio 20.14 H (12.00-20.00) Ratio Glucose 272 H (70-110) mg/dL POC Glucose (mg/dL) 287 H (70-110) mg/dL Calcium 8.5 L (8.7-10.3) mg/dL C-Reactive Protein (<1.0) mg/dL 05/22/23 05/22/23 Range/Units 07:21 11:52 WBC (4.50-10.00) X 10*3/uL Hct (39.6-50.0) % Neutrophils # (1.80-7.70) X 10*3/uL Monocytes # (0.20-1.00) X 10*3/uL Eosinophils # (0.04-0.35) X 10*3/uL ESR (0-15) mm/hr Carbon Dioxide (21.6-31.8) mmol/L Anion Gap (4.00-12.00) mmol/L BUN/Creatinine Ratio (12.00-20.00) Ratio Glucose (70-110) mg/dL POC Glucose (mg/dL) 275 H 249 H (70-110) mg/dL Calcium (8.7-10.3) mg/dL C-Reactive Protein (<1.0) mg/dL Microbiology - Last 24 Hours (Table) 05/21/23 12:15 Blood Culture Gram Stain - Preliminary Blood Assessment and Plan Plan: 1patient presented to hospital with sepsis in this patient with a fever tachycardia now with evidence of gram-positive bacteremia as well as possible pneumonia, patient also complaining of significant pain to the neck area however he did have a history of fall x-rays were negative if any evidence of persistent bacteremia may need further work-up to rule out possible cervical spine disease. 2blood cultures will be repeated and will check inflammatory markers 3-discontinue Rocephin and vancomycin 4-start the patient cefazolin 2 g every 8 hours We will follow on clinical condition and cultures to further adjust medication if needed Thank you for this consultation we will follow the patient along with you Dictation was produced using [employer] dictation software. please excuse any grammatical, word or spelling errors. Time with Patient: Greater than 30
[2023-05-23] MEDS: KETOROLAC 15 MG/ML 1 ML VIAL IVP PRN (01:14)
[2023-05-23] MEDS: SODIUM CHLORIDE 0.9% 1,000 ML IV SCH ×2 (01:18→13:18)
[2023-05-23 06:43] LABS: ALT 34 U/L (4-49); AST 67 U/L (17-59); African American GFR (CKD) >90 (>60 ml/min/1.73 sqM); Albumin 2.7 g/dL (3.5-5.0); Alkaline Phosphatase 117 U/L (38-126); Anion Gap 10 mmol/L; Blood Urea Nitrogen 17 mg/dL (9-20); Calcium 8.3 mg/dL (8.4-10.2); Carbon Dioxide 19 mmol/L (22-30); Chloride 105 mmol/L (98-107); Globulin 2.6 g/dL; Glucose 178 mg/dL (74-99); Non-African American GFR(CKD) >90 (>60 ml/min/1.73 sqM); Potassium 3.9 mmol/L (3.5-5.1); Sodium 134 mmol/L (137-145); Total Bilirubin 0.7 mg/dL (0.2-1.3); Total Protein 5.3 g/dL (6.3-8.2)
[2023-05-23 06:59] LABS: C Reactive Protein 23.5 mg/dL (<1.0)
[2023-05-23 07:09] LABS: Glucose,Whole Blood 194 mg/dL (70-110)
[2023-05-23] MEDS ORDERED: HYDROmorphone 0.5 MG/0.5 ML SYRINGE IVP STA (08:26)
[2023-05-23] MEDS: HYDROcodone/APAP 5-325MG 1 EACH TAB PO SCH ×5 (08:49→23:08)
[2023-05-23] MEDS: INSULIN ASPART (NovoLOG) 100 UNIT/ML VIAL SQ SCH ×7 (08:52→21:28)
[2023-05-23] MEDS: polyethylene glycoL 3350 17 GM POWD.PACK PO SCH (09:00)
[2023-05-23] MEDS: SENNOSIDES-DOCUSATE SODIUM 1 EACH TAB PO SCH ×2 (09:00→19:50)
[2023-05-23 09:12] LABS: Basophils # (A) 0.09 X 10*3/uL (0.00-0.10); Basophils % (A) 0.4 %; Eosinophils # (A) 0.03 X 10*3/uL (0.04-0.35); Eosinophils % (A) 0.1 %; HCT 37.5 % (39.6-50.0); HGB 13.1 d/dL (13.0-17.0); Lymphocytes # (A) 1.08 X 10*3/uL (0.90-5.00); Lymphocytes % (A) 5.2 %; MCH 30.3 pg (27.0-32.0); MCHC 34.9 d/dL (32.0-37.0); MCV 86.8 FL (80.0-97.0); Mean Platelet Volume 10.1 FL (9.5-12.2); Monocytes # (A) 1.43 X 10*3/uL (0.20-1.00); Monocytes % (A) 6.9 %; NRBC Per 100 WBC 0 X 10*3/uL (0.00-0.01); Neutrophils # (A) 17.93 X 10*3/uL (1.80-7.70); Neutrophils % (A) 86.5 %; Platelet Count 373 X 10*3/uL (140-440); RBC 4.32 X 10*6/uL (4.40-5.60); RDW 12.6 % (11.5-14.5); WBC 20.74 X 10*3/uL (4.50-10.00)
[2023-05-23] MEDS: METOPROLOL TARTRATE 25 MG TAB PO SCH ×2 (09:32→19:47)
--- NOTE | 2023-05-23 10:44 | P.PN ---
Subjective Progress Note Date: 05/23/23 Pt having uncontrolled pain in neck and hand. has stiff neck and cannot move up and down without significant pain. Plan for TAWNY and MRI today. Gen: in no apparent distress, resting comfortably in bed Eyes: PERRL, no scleral injection or icterus HENT: normocephalic, atraumatic, good hearing acuity, moist mucous membranes Neck: no tracheal deviation, full range of motion Resp: good air exchange, breathing comfortably with no accessory muscle use, no tactile fremitus, bilateral crackles in the bases CVS: good distal perfusion x 4, no pitting edema, regular rate and rhythm without murmurs GI: soft, NTTP, ND, no hepatosplenomegaly : no suprapubic tenderness, no CVAT, sanchez catheter not present MSK: no clubbing, no cyanosis, no noted contractures of extremities, Skin: no noted rashes, petechiae; temperature of skin is appropriate Neuro: moving all extremities without signs of weakness, CN II-XII intact Psych: cooperative, euthymic mood, insight and judgment intact Hospital Course: 57-year-old man with a medical history of uncontrolled diabetes with reported A1c of 10.8% isn't on any home medications presented for evaluation of polyarthralgias, neck pain, fevers. In the emergency room, patient was afebrile, 127/83, heart rate 114, 98% on room air. CBC demonstrated leukocytosis of 15.2, predominantly neutrophils. Basic metabolic panel showed sodium of 132, chloride of 96, CO2 of 18, anion gap was 18, BUN was 16, creatinine is 0.61. Glucose is 295. Liver function tests showed alkaline phosphatase elevation of 164. ESR was 62, CRP was 23.6. UA showed 1+ protein, 4+ glucose, 4+ ketones, small amount of blood, 6 white blood cells, 1 red blood cell. Influenza A, B, RSV, Covid, group A strep were all negative. Heterophile antibody was negative. Case is discussed with the emergency room provider and decision was made to admit the patient to observation for further diagnostic workup. Assessment: Community Acquired Pneumonia MSSA Bacteremia Neck Pain - possible osteo vs abscess Polyarthralgia Leukocytosis Elevated ESR/CRP Diabetes, uncontrolled Plan: BCx growing MSSA in 2/2 bottles. Repeat ordered, pending ID consulted yesterday, note reviewed, abx switched to cefazolin Discussed with cardiology, plan for TAWNY today to r/o vegetation MRI cervical spine ordered HIV negative SHAMIKA negative Continue cefazolin 1g q8h Pain control: Toradol 15 mg IV push every 6 hours when necessary, [place] 5/325 every 4 hours schedled, Tylenol 650 mg every 6 when necessary; added 0.5mg IV push of dilaudid once Bowel regimen: Senokot-S 1 tab twice a day, MiraLAX 17 g daily PT/OT Patient is Full Code Objective - Vital Signs Vital signs: Vital Signs Temp 98.2 F 05/23/23 08:00 Pulse 129 H 05/23/23 08:00 Resp 20 05/23/23 08:00 BP 138/83 05/23/23 08:00 Pulse Ox 90 L 05/23/23 08:00 FiO2 Intake & Output 05/22/23 05/23/23 05/23/23 18:59 06:59 18:59 Output Total 300 325 Balance -300 -325 Output: Urine 300 325 Other: Voiding Method Toilet Toilet # Voids 1 # Bowel Movements 0 - Labs CBC & Chem 7: 05/23/23 05:24 05/23/23 05:24 Labs: Abnormal Lab Results - Last 24 Hours (Table) 05/22/23 05/22/23 05/22/23 Range/Units 06:16 06:16 11:52 WBC 16.94 H (4.50-10.00) X 10*3/uL RBC (4.40-5.60) X 10*6/uL Hct 39.1 L (39.6-50.0) % Neutrophils # 14.45 H (1.80-7.70) X 10*3/uL Monocytes # 1.26 H (0.20-1.00) X 10*3/uL Eosinophils # 0.01 L (0.04-0.35) X 10*3/uL Sodium (137-145) mmol/L Carbon Dioxide 15.6 L (21.6-31.8) mmol/L Anion Gap 17.40 H (4.00-12.00) mmol/L Creatinine (0.66-1.25) mg/dL BUN/Creatinine Ratio 20.14 H (12.00-20.00) Ratio Glucose 272 H (70-110) mg/dL POC Glucose (mg/dL) 249 H (70-110) mg/dL Calcium 8.5 L (8.7-10.3) mg/dL AST (17-59) U/L C-Reactive Protein (<1.0) mg/dL Total Protein (6.3-8.2) g/dL Albumin (3.5-5.0) g/dL Procalcitonin (0.02-0.09) ng/mL 05/22/23 05/22/23 05/23/23 Range/Units 17:07 20:39 05:24 WBC (4.50-10.00) X 10*3/uL RBC (4.40-5.60) X 10*6/uL Hct (39.6-50.0) % Neutrophils # (1.80-7.70) X 10*3/uL Monocytes # (0.20-1.00) X 10*3/uL Eosinophils # (0.04-0.35) X 10*3/uL Sodium 134 L (137-145) mmol/L Carbon Dioxide 19 L (21.6-31.8) mmol/L Anion Gap (4.00-12.00) mmol/L Creatinine 0.61 L (0.66-1.25) mg/dL BUN/Creatinine Ratio (12.00-20.00) Ratio Glucose 178 H (70-110) mg/dL POC Glucose (mg/dL) 174 H 136 H (70-110) mg/dL Calcium 8.3 L (8.7-10.3) mg/dL AST 67 H (17-59) U/L C-Reactive Protein 23.5 H (<1.0) mg/dL Total Protein 5.3 L (6.3-8.2) g/dL Albumin 2.7 L (3.5-5.0) g/dL Procalcitonin (0.02-0.09) ng/mL 05/23/23 05/23/23 05/23/23 Range/Units 05:24 05:24 07:06 WBC 20.74 H (4.50-10.00) X 10*3/uL RBC 4.32 L (4.40-5.60) X 10*6/uL Hct 37.5 L (39.6-50.0) % Neutrophils # 17.93 H (1.80-7.70) X 10*3/uL Monocytes # 1.43 H (0.20-1.00) X 10*3/uL Eosinophils # 0.03 L (0.04-0.35) X 10*3/uL Sodium (137-145) mmol/L Carbon Dioxide (21.6-31.8) mmol/L Anion Gap (4.00-12.00) mmol/L Creatinine (0.66-1.25) mg/dL BUN/Creatinine Ratio (12.00-20.00) Ratio Glucose (70-110) mg/dL POC Glucose (mg/dL) 194 H (70-110) mg/dL Calcium (8.7-10.3) mg/dL AST (17-59) U/L C-Reactive Protein (<1.0) mg/dL Total Protein (6.3-8.2) g/dL Albumin (3.5-5.0) g/dL Procalcitonin 0.48 H (0.02-0.09) ng/mL Microbiology - Last 24 Hours (Table) 05/21/23 12:15 Blood Culture Gram Stain - Preliminary Blood
--- NOTE | 2023-05-23 10:45 | P.CRDCN ---
History of Present Illness History of present illness: HISTORY OF PRESENT ILLNESS: This is a 57-year-old male with a past medical history significant for nicotine dependence and diabetes. 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 We have been asked to see the patient in consultation for cardiomyopathy and TAWNY. Maurisio t examined at the bedside. Patient presented to the hospital with a chief complaint of generalized pain. He states he has been having pain all over his entire body that started 2 weeks ago. He currently denies any shortness of breath. He reports chest soreness this morning. He denies any dizziness or lightheadedness. He denies any previous cardiac history. He is a current cigar smoker and smokes less than 1 pack per day. He reports alcohol use twice a month. He denies any drug use including marijuana. The patient was found to have sepsis and has been running fevers. WBC today 20.74. He is being treated with IV antibiotics. Blood cultures are positive for gram-positive cocci in c nano. * Chest xray lower lobe pneumonia * Laboratory data: WBC 20.74. Hemoglobin 13.1. Platelet count 373. Sodium 134. Potassium 3.9. BUN 17. Creatinine 0.61. * Current home cardiac medications include none * Echocardiogram completed revealing ejection fraction 30-35% with hypokinesis of the apex and mid apical inferior wall and mild pulmonary hypertension REVIEW OF SYSTEMS: At the time of my exam: CONSTITUTIONAL: Denies fever or chills. HEENT: Denies blurred vision, vision changes, or eye pain. Denies hemoptysis CARDIOVASCULAR: Denies chest pain. Denies orthopnea. Denies PND. Denies palpitations RESPIRATORY: Denies shortness of breath. GASTROINTESTINAL: Denies abdominal pain. Denies nausea or vomiting. HEMATOLOGIC: Denies bleeding disorders. GENITOURINARY: Denies any blood in urine. SKIN: Denies pruitis. Denies rash. PHYSICAL EXAM: VITAL SIGNS: Reviewed. GENERAL: Well-developed in no acute distress. HEENT: Head is normocephalic. Pupils are equal, round. Sclerae anicteric. Mucous membranes of the mouth are moist. Neck supple. No JVD or thyromegaly LUNGS: Respirations even and unlabored. Lungs with rhonchi on the right. HEART: Regular rate and rhythm. S1 and S2 heard. ABDOMEN: Soft. Nondistended. Nontender. EXTREMITIES: Normal range of motion. No clubbing or cyanosis. Peripheral pulses intact. No lower extremity edema NEUROLOGIC: Awake and alert. Oriented x 3. ASSESSMENT: Generalized pain Neck pain Pneumonia Sepsis with leukocytosis, fever, and tachycardia Bacteremia, blood cultures positive for gram-positive cocci in clusters Cardiomyopathy, unknown if ischemic or nonischemic Diabetes, uncontrolled Nicotine dependence PLAN: Continue antibiotics per infectious disease Begin aspirin 81 mg daily, atorvastatin 20 mg at night, lisinopril 2.5 mg daily, and metoprolol tartrate 25 mg twice a day Patient will need workup regarding cardiomyopathy when his acute issues have resolved Patient to undergo TAWNY today with Dr. Sanchez Further recommendations pending patient course Nurse practitioner note has been reviewed by physician. Signing provider agrees with the documented findings, assessment, and plan of care. Past Medical History Past Medical History: Diabetes Mellitus History of Any Multi-Drug Resistant Organisms: None Reported Past Surgical History: No Surgical Hx Reported Past Psychological History: No Psychological Hx Reported Smoking Status: Current every day smoker Past Alcohol Use History: Occasional Past Drug Use History: None Reported Medications and Allergies Home Medications Medication Instructions Recorded Confirmed Type No Known Home Medications 05/21/23 05/21/23 History Allergies Allergy/AdvReac Type Severity Reaction Status Date / Time No Known Allergies Allergy Verified 05/21/23 16:28 Physical Exam Vitals: Vital Signs Temp Pulse Resp BP Pulse Ox 05/23/23 02:00 98.3 F 117 H 18 120/72 92 L 05/22/23 20:00 18 05/22/23 19:33 99.3 F 132 H 18 135/77 92 L 05/22/23 11:15 98.6 F 120 H 18 132/79 92 L Intake and Output 05/22/23 05/23/23 05/23/23 22:59 06:59 14:59 Output Total 125 200 Balance -125 -200 Output: Urine 125 200 Other: Voiding Method Toilet # Voids 1 # Bowel Movements 0 Results 05/23/23 05:24 05/23/23 05:24 Cardiac Enzymes 05/23/23 Range/Units 05:24 AST 67 H (17-59) U/L CBC 05/22/23 Range/Units 06:16 WBC 16.94 H (4.50-10.00) X 10*3/uL RBC 4.44 (4.40-5.60) X 10*6/uL Hgb 13.4 (13.0-17.0) d/dL Hct 39.1 L (39.6-50.0) % Plt Count 325 (140-440) X 10*3/uL Comprehensive Metabolic Panel 05/22/23 05/23/23 Range/Units 06:16 05:24 Sodium 136 134 L (135-145) mmol/L Potassium 4.0 3.9 (3.5-5.5) mmol/L Chloride 103 105 (96-109) mmol/L Carbon Dioxide 15.6 L 19 L (21.6-31.8) mmol/L BUN 14.1 17 (9.0-27.0) mg/dL Creatinine 0.7 0.61 L (0.6-1.5) mg/dL Glucose 272 H 178 H (70-110) mg/dL Calcium 8.5 L 8.3 L (8.7-10.3) mg/dL AST 67 H (17-59) U/L ALT 34 (4-49) U/L Alkaline Phosphatase 117 (38-126) U/L Total Protein 5.3 L (6.3-8.2) g/dL Albumin 2.7 L (3.5-5.0) g/dL Current Medications Generic Name Dose Route Start Last Admin Trade Name Freq PRN Reason Stop Dose Admin Acetaminophen 650 mg 05/21/23 16:15 05/22/23 02:44 Acetaminophen Tab 325 Mg Tab PO 650 mg Q6HR PRN Administration Mild Pain or Fever > 100.5 Hydrocodone Bitart/Acetaminophen 1 each 05/21/23 16:15 05/22/23 20:56 Hydrocodone/Apap 5-325mg 1 Each Tab PO 1 each Q4HR PRN Administration Moderate Pain (Scale 4 to 6) Sodium Chloride 1,000 mls @ 75 mls/hr 05/21/23 16:15 05/23/23 01:18 Saline 0.9% IV 75 mls/hr .[id number] HERB Administration Cefazolin Sodium 2 gm/ Sodium 50 mls @ 100 mls/hr 05/23/23 00:00 05/23/23 01:07 Chloride IVPB 100 mls/hr Q8HR HERB Administration Protocol Insulin Aspart 10 unit 05/22/23 07:30 05/22/23 18:07 Insulin Aspart (Novolog) 100 Unit/Ml Vial SQ 10 unit AC-TID HERB Administration Insulin Aspart 0 unit 05/22/23 07:30 05/22/23 20:59 Insulin Aspart (Novolog) 100 Unit/Ml Vial SQ Not Given ACHS HERB Protocol Ketorolac Tromethamine 15 mg 05/21/23 16:15 05/23/23 01:14 Ketorolac 15 Mg/Ml 1 Ml Vial IVP 05/24/23 16:17 15 mg Q6HR PRN Administration Moderate Pain (Scale 4 to 6) Naloxone HCl 0.2 mg 05/21/23 16:15 Naloxone 0.4 Mg/Ml 1 Ml Vial IV Q2M PRN Opioid Reversal Ondansetron HCl 4 mg 05/21/23 16:15 Ondansetron 4 Mg/2 Ml Vial IVP Q8HR PRN Nausea And Vomiting Polyethylene Glycol 17 gm 05/22/23 09:00 05/22/23 08:29 Polyethylene Glycol 3350 17 Gm Powd.Pack PO 17 gm DAILY HERB Administration Senna/Docusate Sodium 1 each 05/21/23 21:00 05/22/23 20:59 Sennosides-Docusate Sodium 1 Each Tab PO Not Given BID HERB Intake and Output 05/22/23 05/23/23 05/23/23 22:59 06:59 14:59 Output Total 125 200 Balance -125 -200 Output: Urine 125 200 Other: Voiding Method Toilet # Voids 1 # Bowel Movements 0 05/22/23 06:16 05/23/23 05:24
[2023-05-23] MEDS ORDERED: fentaNYL (PF) 50 MCG/ML 2 ML AMP ONE (11:37)
--- NOTE | 2023-05-23 11:42 | MR ---
EXAMINATION TYPE: MR cervical spine wo/w con DATE OF EXAM: 05/23/2023 INDICATION: Patient age: Male; 57 years old; Reason for study: abscess, spinal; PHH. Neck, shoulder, chest pain, joint pain/swelling COMPARISON: Radiograph 05/21/2023. TECHNIQUE: Multi planar, multi sequence imaging was performed utilizing: T1-weighted, T2-weighted, an d turbo inversion recovery imaging of the cervical spine. IV Contrast: 9 cc Gadavist FINDINGS: There is a prevertebral space fluid collection thought to be in the prevertebral/danger space extendi ng from C1-C2 level and extending inferiorly and out of the [id number] on axial imaging into the m ediastinum. Epidural Fluid collection at the level of C6 and C7 and the left subarticular/ foraminal region measu ring up to 3.3 cm in length by 2.1 x 0.6 cm. Abnormal signal within the C6 vertebral body with low T1 high T2 signal and with inversion recovery s ignal in postcontrast enhancement. Cord: The spinal cord is unremarkable with regards to their signal intensity and morphology. Discs: Multilevel disc desiccation is present. C2-C3: No significant disc pathology. The spinal canal is patent. No neural foraminal stenosis. C3-C4: No significant disc pathology. The spinal canal is patent. Bilateral facet and uncovertebral joint arthropathy are present with mild to moderate right neural foraminal stenosis. The left neural foramen is patent. C4-C5: A disc osteophyte complex is present with mild spinal canal stenosis. Bilateral facet and unc overtebral joint arthropathy are present with mild bilateral neural foraminal stenosis. C5-C6: No significant disc pathology. The spinal canal is patent. Bilateral facet and uncovertebral joint arthropathy are present with mild bilateral neural foraminal stenosis. C6-C7: No significant disc pathology. The spinal canal is patent. No neural foraminal stenosis. C7-T1: No significant disc pathology. The spinal canal is patent. No neural foraminal stenosis. Other: None. IMPRESSION: 1. Prevertebral/danger space organizing fluid collection most compatible with abscess extending from C1/C2 into the superior mediastinum. 2. Suspected C6 vertebral body for osteomyelitis. 3. Epidural abscess of the left subarticular/foraminal region at the level of C6-C7. 4. No evidence for disc herniation or significant spinal canal stenosis. 5. Multilevel disc degeneration with associated osteoarthritic changes. Findings communicated to Dr. Jerry Diego MD on 05/23/2023 11:[address] Jhon King.
[2023-05-23] MEDS ORDERED: SODIUM CHLORIDE 0.9% 250 ML IV ONE (12:20)
[2023-05-23] MEDS ORDERED: BENZOCAINE SPRAY 1 CAN MUCOUS MEM ONE (12:20)
[2023-05-23] MEDS ORDERED: MIDAZOLAM 2 MG/2 ML VIAL IVP ONE (12:20)
[2023-05-23] MEDS ORDERED: fentaNYL (PF) 50 MCG/ML 2 ML AMP IVP ONE (12:20)
[2023-05-23 12:55] LABS: Glucose,Whole Blood 199 mg/dL (70-110)
[2023-05-23 13:31] LABS: N. gonorrhoeae,PCR Negative (Negative)
[2023-05-23 16:53] LABS: Glucose,Whole Blood 268 mg/dL (70-110)
[2023-05-23 20:00] VITALS: BP 121/78; PULSE 132; RESP 17; TEMP 99.2
[2023-05-23] MEDS ORDERED: ATORVASTATIN 20 MG TAB PO SCH (21:00)
[2023-05-23 21:12] LABS: Glucose,Whole Blood 195 mg/dL (70-110)
--- NOTE | 2023-05-23 22:38 | ECHOT ---
TRANSESOPHAGEAL ECHOCARDIOGRAM INDICATIONS: Sepsis, rule out infective endocarditis. PROCEDURE NOTE: After obtaining informed consent, transesophageal echocardiogram was performed in left lateral position using an Omniplane probe. Local and IV sedation were obtained using 2 mg of Versed and 25 mcg of fentanyl. The patient tolerated the procedure well without any obvious immediate complications. FINDINGS: 1. There is no vegetation over the mitral valve, aortic valve, tricuspid valve. 2. There is mild mitral regurgitation noted. 3. Aortic valve is free of stenosis or regurgitation. 4. Tricuspid valve appears normal. 5. Interatrial septum appears aneurysmally dilated without any evidence of left-to- right shunt by color-flow Doppler or [id number] shunt by agitated saline contrast study. 6. Aorta root appears normal. 7. Left ventricle has normal size and systolic function. CONCLUSIONS: Normal LV systolic function. No evidence of vegetation. MMODL / IJN: [id number] /
[2023-05-23 23:53] LABS: Chol/HDL Ratio 8.79 Ratio; LDL Cholesterol,Calculated 149.5 mg/dL (0.0-131.0)
[2023-05-24] MEDS: KETOROLAC 15 MG/ML 1 ML VIAL IVP PRN (00:13)
--- NOTE | 2023-05-24 07:31 | P.DS ---
Providers Date of admission: 05/21/23 17:06 Expected date of discharge: 05/24/23 Attending physician: Jerry Diego MD Consults: 05/22/23 14:51 Consult Physician Routine Consulting Provider: Fercho Ly Consult Reason/Comments: staph bacteremia Do you want consulting provider notified?: Yes 05/22/23 17:18 Consult Physician Routine Consulting Provider: Zackary Alston Consult Reason/Comments: newly reduced EF, bacteremia with concern for endocarditis Do you want consulting provider notified?: Yes 05/23/23 11:11 Consult Physician Urgent Consulting Provider: Edward Knox Consult Reason/Comments: C5 osteomyelitis Do you want consulting provider notified?: Yes Primary care physician: [facility] Hospital Course: Assessment: Community Acquired Pneumonia MSSA Bacteremia Neck Pain - possible osteo vs abscess Polyarthralgia Leukocytosis Elevated ESR/CRP Diabetes, uncontrolled Hospital Course: 57-year-old man with a medical history of uncontrolled diabetes with reported A1c of 10.8% isn't on any home medications presented for evaluation of polyarthralgias, neck pain, fevers. In the emergency room, patient was afebrile, 127/83, heart rate 114, 98% on room air. CBC demonstrated leukocytosis of 15.2, predominantly neutrophils. Basic metabolic panel showed sodium of 132, chloride of 96, CO2 of 18, anion gap was 18, BUN was 16, creatinine is 0.61. Glucose is 295. Liver function tests showed alkaline phosphatase elevation of 164. ESR was 62, CRP was 23.6. UA showed 1+ protein, 4+ glucose, 4+ ketones, small amount of blood, 6 white blood cells, 1 red blood cell. Influenza A, B, RSV, Covid, group A strep were all negative. Heterophile antibody was negative. Case is discussed with the emergency room provider and decision was made to admit the patient to observation for further diagnostic workup. Pt was brought in to the hospital and found to have staph bacteremia with MSSA. He underwent echo which showed reduced EF to 35%, a TAWNY which did not show vegetations. He then underwent MRI C-spine which showed significant pre-vertebral abscess, epidural abscess, and C6 osteomyelitis. [facility] was contacted and accepted patient to transfer for higher level of care. No physical exam associated with this discharge summary Patient Condition at Discharge: Undetermined Plan - Discharge Summary New Discharge Prescriptions: No Action No Known Home Medications Discharge Medication List No Known Home Medications 05/21/23 [History] Follow up Appointment(s)/Referral(s): [facility] [Primary Care Provider] - 1-2 days Discharge Disposition: OTHER INSTITUTION NOT DEFINED
[2023-05-24] MEDS ORDERED: ASPIRIN 81 MG PO SCH (09:00)
--- NOTE | 2023-05-24 10:56 | CDI ---
Documentation Clarification Form Date: 05/24/2023 10:32:46 AM From: Viviana Delgado RN, CCDS Admit Date: 05/21/2023 05:06:00 PM Patient Name: Jose Lara Visit Number: [id number] Discharge Date: 05/24/2023 12:15:00 AM ATTENTION: The Clinical Documentation Specialists (CDI) and [facility] Coding Staff appreciate your assistance in clarifying documentation. Please respond to the clarification below the line at the bottom and electronically sign. The CDI & [facility] Coding staff will review the response and follow-up if needed. Please note: Queries are made part of the Legal Health Record. If you have any questions, please contact the author of this message via ITS. Dr. Jerry Diego The patient has sepsis documentation in the ID Consult and progress notes starting on 05/22/2023. Based on this information and the findings below, is there an additional diagnosis that is clinically appropriate for this patient? 05/22 ID Consult: patient presented to hospital with sepsis in this patient with a fever tachycardia now with evidence of gram-positive bacteremia as well as possible pneumonia, patient also complaining of significant pain to the neck area however he did have a history of fall x-rays were negative if any evidence of persistent bacteremia may need further work-up to rule out possible cervical spine disease. History/Risk Factors: Diabetes Mellitus, Current every day smoker Clinical Indicators: 57-year-old male present to hospital with neck pain from fall, found fever tachycardia now with evidence of gram-positive bacteremia as well pneumonia. 05/21 WBC 15.2 [id number] C-Reactive Protein 23.6 05/22 WBC 16.94 Lactic acid: 1.1 05/21 Blood cultures: Presumptive MRSA 05/21 Vital signs: 146/62 112 20 97.8 , 100.6 Treatment .9NS 1,000 IV Bolus x2 05/21 then @ 75 MLS/HR Vancomycin HCL 1,500 MG IVPB 05/22-05/22 PTD (DC) Rocephin 1 GM IVPB 05/22, Zithromycin 500MG IVPB 05/22 Cefazolin 2 GM IVPB Q 8 HRS Is there an additional diagnosis that is clinically appropriate for this patient? [x] Severe Sepsis, present on admission (Specify type if known) [ ] Sepsis ruled out [ ] Other, please specify [ ] Unable to determine SIRS Criteria: 2 or more of the following may indicate SIRS Temperature < 96.8F (36C) or > 101.0F (38.3C) Heart Rate > 90 bpm Respiratory Rate > 20 breaths/min or PaCO2 < 32 mmHg White Blood Cell Count > 12,000 or < 4,000 cells/mm3 or > 10% bands (Template Last Reviewed: October 2022) MTDD
== END 2023-05-24 00:15 | disposition short-term general hospital (02) | DRG 871 ==
LOC: EC 10:58 → 5NMEDONC 17:06
PROVIDERS: ADMIT Internal Medicine; ATTEND Internal Medicine
PROC: B24BZZ4 Ultrasonography of Heart with Aorta, Transesophageal (ICD-10-PCS; principal; 2023-05-23 13:35)
DX: A41.02 Sepsis due to Methicillin resistant Staphylococcus aureus (principal); G06.2 Extradural and subdural abscess, unspecified; J18.9 Pneumonia, unspecified organism; M46.22 Osteomyelitis of vertebra, cervical region; I42.9 Cardiomyopathy, unspecified; I27.20 Pulmonary hypertension, unspecified; E11.69 Type 2 diabetes mellitus with other specified complication; E11.65 Type 2 diabetes mellitus with hyperglycemia; R65.20 Severe sepsis without septic shock; M06.4 Inflammatory polyarthropathy; Z20.822 Contact with and (suspected) exposure to COVID-19; Z28.310 Unvaccinated for COVID-19; M50.30 Other cervical disc degeneration, unspecified cervical region; F17.210 Nicotine dependence, cigarettes, uncomplicated; F17.290 Nicotine dependence, other tobacco product, uncomplicated; K59.00 Constipation, unspecified; M25.461 Effusion, right knee; M25.532 Pain in left wrist; M25.561 Pain in right knee; R74.8 Abnormal levels of other serum enzymes; W11.XXXA Fall on and from ladder, initial encounter
CPT/HCPCS: 36415; 71046; 72050; 72156; 80048; 80053; 80061; 80074; 81001; 83605; 83735; 84145; 85025; 85652; 86038; 86140; 86160; 86162; 86200; 86308; 86431; 86618; 86780; 87040; 87077; 87186; 87390; 87591; 87636; 87651; 93005; 93306; 93312; 93320; 93325; 96361; 96374; 96375; 96376; 99285

== ENCOUNTER 2023-12-03 11:49 | Emergency (ER) | payer OTHER ==
--- NOTE | 2023-12-03 12:46 | ED ---
General Adult HPI - General Chief complaint: Dizziness Stated complaint: Dizziness Time Seen by Provider: 12/03/23 12:06 Source: patient Mode of arrival: ambulatory Limitations: no limitations - History of Present Illness Initial comments: 58-year-old male with past medical history of C6 osteomyelitis, CHF, diabetes mellitus who presents emergency department with ataxia. States that since he has been ataxic and symptoms are getting worse. Its to the point now where the patient cannot ambulate on his own. He reports to a left-sided retrobulbar headache with blurred vision in the left eye. He does have some chronic numbness and tingling to his bilateral upper extremities but nothing new. He denies any fevers. No nausea or vomiting. No known trauma. Patient does not take any blood thinners. No other alleviating, precipitating or modifying factors - Related Data Home Medications Medication Instructions Recorded Confirmed No Known Home Medications 05/21/23 05/21/23 Allergies Allergy/AdvReac Type Severity Reaction Status Date / Time No Known Allergies Allergy Verified 12/03/23 11:56 Review of Systems ROS Statement: Those systems with pertinent positive or pertinent negative responses have been documented in the HPI. ROS Other: All systems not noted in ROS Statement are negative. Past Medical History Past Medical History: Diabetes Mellitus History of Any Multi-Drug Resistant Organisms: None Reported Past Surgical History: No Surgical Hx Reported Past Psychological History: No Psychological Hx Reported Smoking Status: Current every day smoker Past Alcohol Use History: Occasional Past Drug Use History: None Reported General Exam Limitations: no limitations General appearance: alert, in no apparent distress Head exam: Present: atraumatic, normocephalic, normal inspection Eye exam: Present: normal appearance, PERRL, EOMI, nystagmus (lateral). Absent: scleral icterus, conjunctival injection, periorbital swelling ENT exam: Present: normal exam, mucous membranes moist Neck exam: Present: normal inspection. Absent: tenderness, meningismus, lymphadenopathy Respiratory exam: Present: normal lung sounds bilaterally. Absent: respiratory distress, wheezes, rales, rhonchi, stridor Cardiovascular Exam: Present: normal rhythm, tachycardia, normal heart sounds. Absent: systolic murmur, diastolic murmur, rubs, gallop, clicks GI/Abdominal exam: Present: soft, normal bowel sounds. Absent: distended, tenderness, guarding, rebound, rigid Extremities exam: Present: normal inspection, full ROM, normal capillary refill. Absent: tenderness, pedal edema, joint swelling, calf tenderness Back exam: Present: normal inspection Neurological exam: Present: alert, oriented X3, CN II-XII intact Psychiatric exam: Present: normal affect, normal mood Skin exam: Present: warm, dry, intact, normal color. Absent: rash Course Vital Signs 12/03/23 12/03/23 12/03/23 11:54 13:30 14:03 Temperature 98 F 97.9 F Pulse Rate 88 109 H 109 H Respiratory 18 20 17 Rate Blood Pressure 130/90 128/93 128/92 O2 Sat by Pulse 100 99 100 Oximetry 12/03/23 12/03/23 15:05 16:07 Temperature Pulse Rate 109 H 111 H Respiratory 17 19 Rate Blood Pressure 129/93 132/95 O2 Sat by Pulse 99 100 Oximetry Medical Decision Making - Medical Decision Making Was pt. sent in by a medical professional or institution (, PA, DIESEL MOTOR MECHANIC, urgent care, hospital, or skilled nursing...) When possible be specific @ -No Did you speak to anyone other than the patient for history (EMS, parent, family, police, friend...)? What history was obtained from this source @ -With the patient's significant other Did you review nursing and triage notes (agree or disagree)? Why? @ -I reviewed and agree with nursing and triage notes Were old charts reviewed (outside hosp., previous admission, EMS record, old EKG, old radiological studies, urgent care reports/EKG's, skilled nursing records)? Report findings @ -I reviewed patient's hospitalization from May 2023 where he was diagnosed with cervical osteomyelitis and transferred to [facility] Main Differential Diagnosis (chest pain, altered mental status, abdominal pain women, abdominal pain men, vaginal bleeding, weakness, fever, dyspnea, syncope, headache, dizziness, GI bleed, back pain, seizure, CVA, palpatations, mental health, musculoskeletal)? @ -Differential Dizziness: Benign paroxysmal positional Vertigo, Menieres disease, otitis media, acoustic neuroma, vertebrobasilar insufficiency, cerebellar stroke, encephalitis, hypovolemic, arrhythmia, coronary artery syndrome, anemia, this is not meant to be an all-inclusive list EKG interpreted by me (3pts min.). @ -Yes and demonstrates sinus tachycardia with a rate of 114. LA interval 125. QRS 182. QTc of 476. No ST segment elevation Repeat EKG done at 1327 demonstrates sinus tach with a rate of 108. LA interval 88. QRS 178. QTc of 44. Right bundle branch block. ST segment elevation in V3 X-rays interpreted by me (1pt min.). @ -None done CT interpreted by me (1pt min.). @ -Yes and demonstrates significant left cerebellar edema with mass effect U/S interpreted by me (1pt. min.). @ -None done What testing was considered but not performed or refused? (CT, X-rays, U/S, labs)? Why? @ -MRI however we do not have MRI capabilities What meds were considered but not given or refused? Why? @ -None Did you discuss the management of the patient with other professionals (professionals i.e. , PA, DIESEL MOTOR MECHANIC, lab, RT, psych nurse, dialysis social worker, outside laborer, teacher, loan service officer, egg caser)? Give summary @ -Spoke with [facility] who does refuse the patient due to capacity. Also spoke with Natalie Knutson Was smoking cessation discussed for >3mins.? @ -No Was critical care preformed (if so, how long)? @ -Yes, 42 minutes for identification of brain mass with vasogenic edema and transferred to facility with neurosurgical capabilities Were there social determinants of health that impacted care today? How? (Homelessness, low income, unemployed, alcoholism, drug addiction, transportation, low edu. Level, literacy, decrease access to med. care, intermediate, rehab)? @ -No Was there de-escalation of care discussed even if they declined (Discuss DNR or withdrawal of care, Hospice)? DNR status @ -No What co-morbidities impacted this encounter? (DM, HTN, Smoking, COPD, CAD, Cancer, CVA, ARF, Chemo, Hep., AIDS, mental health diagnosis, sleep apnea, morbid obesity)? @ -CHF Was patient admitted / discharged? Hospital course, mention meds given and route, prescriptions, significant lab abnormalities, going to OR and other pertinent info. @ -Upon arrival patient placed into room 1. Thorough history and physical exam was performed. He is established. Laboratory studies are conducted. CT was performed which demonstrates vasogenic edema of the left cerebellum with mass effect on the fourth ventricle. Patient was given 10 mg of Decadron IV. I did call [facility] as patient would like to stay with his neurosurgeon who completed his spine surgery. The call center states that they cannot accept the patient due to capacity. I did discuss this with the patient. He was agreeable to attempting to call [facility]. I spoke with [facility] who does accept the patient as a transfer. Patient is to go to the ED. He will be transported via [facility] ambulance. Accepting physician is Dr. Louie. Patient transferred in stable condition with a guarded prognosis Undiagnosed new problem with uncertain prognosis? @ -Yes Drug Therapy requiring intensive monitoring for toxicity (Heparin, Nitro, Insulin, Cardizem)? @ -No Were any procedures done? @ -No Diagnosis/symptom? @ -Acute visual disturbance left eye, acute ataxia, vasogenic edema left cerebellum with concern for brain mass, NSTEMI Acute, or Chronic, or Acute on Chronic? @ -Acute Uncomplicated (without systemic symptoms) or Complicated (systemic symptoms)? @ -Complicated Side effects of treatment? @ -No Exacerbation, Progression, or Severe Exacerbation? @ -No Poses a threat to life or bodily function? How? (Chest pain, USA, VA, pneumonia, PE, COPD, DKA, ARF, appy, cholecystitis, CVA, Diverticulitis, Homicidal, Suicidal, threat to staff... and all critical care pts) @ -Yes patient does have vasogenic edema - Lab Data Result diagrams: 12/03/23 12:37 12/03/23 12:37 Lab Results 12/03/23 12/03/23 12/03/23 Range/Units 12:37 12:37 12:37 WBC 11.9 H (3.8-10.6) k/uL RBC 6.34 H (4.30-5.90) m/uL Hgb 18.7 H (13.0-17.5) gm/dL Hct 54.5 H (39.0-53.0) % MCV 85.9 (80.0-100.0) fL MCH 29.5 (25.0-35.0) pg MCHC 34.3 (31.0-37.0) g/dL RDW 14.5 (11.5-15.5) % Plt Count 175 (150-450) k/uL MPV 8.7 Neutrophils % 86 % Lymphocytes % 7 % Monocytes % 4 % Eosinophils % 1 % Basophils % 1 % Neutrophils # 10.3 H (1.3-7.7) k/uL Lymphocytes # 0.8 L (1.0-4.8) k/uL Monocytes # 0.5 (0-1.0) k/uL Eosinophils # 0.1 (0-0.7) k/uL Basophils # 0.1 (0-0.2) k/uL Sodium 139 (137-145) mmol/L Potassium 5.3 H (3.5-5.1) mmol/L Chloride 109 H (98-107) mmol/L Carbon Dioxide 16 L (22-30) mmol/L Anion Gap 14 mmol/L BUN 17 (9-20) mg/dL Creatinine 0.43 L (0.66-1.25) mg/dL Est GFR (CKD-EPI)AfAm >90 (>60 ml/min/1.73 sqM) Est GFR (CKD-EPI)NonAf >90 (>60 ml/min/1.73 sqM) Glucose 290 H (74-99) mg/dL Calcium 9.6 (8.4-10.2) mg/dL Total Bilirubin 1.9 H (0.2-1.3) mg/dL AST 34 (17-59) U/L ALT 20 (4-49) U/L Alkaline Phosphatase 67 (38-126) U/L Troponin I 0.172 H* (0.000-0.034) ng/mL Total Protein 7.5 (6.3-8.2) g/dL Albumin 4.5 (3.5-5.0) g/dL Disposition Clinical Impression: Vasogenic edema, Ataxia, Binocular vision disorder with diplopia Disposition: OTHER INSTITUTION NOT DEFINED Condition: Serious Is patient prescribed a controlled substance at d/c from ED?: No Referrals: [facility] [Primary Care Provider] - 1-2 days Time of Disposition: 16:34 - Out of Hospital Transfer - Req. Specs Out of Hospital Transfer - Requested Specifics: Other Emergency Center ([facility]
[2023-12-03 12:53] LABS: ALT 20 U/L (4-49); AST 34 U/L (17-59); African American GFR (CKD) >90 (>60 ml/min/1.73 sqM); Albumin 4.5 g/dL (3.5-5.0); Alkaline Phosphatase 67 U/L (38-126); Anion Gap 14 mmol/L; Blood Urea Nitrogen 17 mg/dL (9-20); Calcium 9.6 mg/dL (8.4-10.2); Carbon Dioxide 16 mmol/L (22-30); Chloride 109 mmol/L (98-107); Glucose 290 mg/dL (74-99); Non-African American GFR(CKD) >90 (>60 ml/min/1.73 sqM); Sodium 139 mmol/L (137-145); Total Bilirubin 1.9 mg/dL (0.2-1.3); Total Protein 7.5 g/dL (6.3-8.2)
[2023-12-03 12:57] LABS: Potassium 5.3 mmol/L (3.5-5.1)
[2023-12-03 13:34] LABS: Basophils # (A) 0.1 k/uL (0-0.2); Basophils % (A) 1 %; Eosinophils # (A) 0.1 k/uL (0-0.7); Eosinophils % (A) 1 %; HCT 54.5 % (39.0-53.0); HGB 18.7 gm/dL (13.0-17.5); Lymphocytes # (A) 0.8 k/uL (1.0-4.8); Lymphocytes % (A) 7 %; MCH 29.5 pg (25.0-35.0); MCHC 34.3 g/dL (31.0-37.0); MCV 85.9 fL (80.0-100.0); Mean Platelet Volume 8.7; Monocytes # (A) 0.5 k/uL (0-1.0); Monocytes % (A) 4 %; Neutrophils # (A) 10.3 k/uL (1.3-7.7); Neutrophils % (A) 86 %; Platelet Count 175 k/uL (150-450); RBC 6.34 m/uL (4.30-5.90); RDW 14.5 % (11.5-15.5); WBC 11.9 k/uL (3.8-10.6)
--- NOTE | 2023-12-03 14:20 | CT ---
EXAMINATION TYPE: CT brain cspine wo con CT DLP: 1358.5 mGycm, Automated exposure control for dose reduction was used. DATE OF EXAM: 12/03/2023 2:08 PM COMPARISON: None. CLINICAL INDICATION:Male, 58 years old with history of neck fushion; Dizziness with recent fall. Neck fusion this passed May. Difficulty with left eye vision. TECHNIQUE: Brain: Multiple axial CT images of the brain were obtained without IV contrast. Cspine: Axial CT images from the skull base to the inferior aspect of T2 we obtained without intraven ous contrast. Coronal and sagittal reformatted images were also reviewed. FINDINGS: Brain: Extra-axial spaces: No abnormal extra-axial fluid collections. Ventricular system: Within normal limits Cerebral parenchyma: No acute intraparenchymal hemorrhage or mass effect. The bazan-white junction is well differentiated. Cerebellum: Large region of vasogenic edema involving the left cerebellar hemisphere. This trace mass effect and partial effacement of the fourth ventricle and foramen of Magendie/Luschka. Intracranial vasculature: Atherosclerotic calcifications of the intracranial vessels. Soft tissues: Normal. Calvarium/osseous structures: No depressed skull fracture. Paranasal sinuses and mastoid air cells: Clear. Visualized orbits: Orbital contents are intact. Cervical spine: Fracture: None. Osseous structures: Anterior cervical fusion changes from the C5-C7 levels. Additional moderate multi level degenerative changes of the cervical spine are appreciated Vertebral alignment: Straightening of the normal cervical lordotic curve. Spinal canal/Neural Foramina: No evidence of significant spinal canal narrowing. No evidence for sign ificant neural foraminal stenosis. Neck soft tissues: Prevertebral soft tissues are within normal limits. Other: The airway is patent. Paraseptal emphysematous changes are present in the lung apices. IMPRESSION: CT brain: 1. Vasogenic edema involving the left cerebellar hemisphere as described, favor underlying mass in th e region. Recommendation is for further evaluation with dedicated MRI of the brain with and without c ontrast. CT cervical spine: 1. No evidence of cervical spine fracture. 2. Moderate multilevel degenerative disc disease with postsurgical changes.
--- NOTE | 2023-12-03 14:37 | CT ---
EXAMINATION TYPE: CT angio head CT DLP: 539.8 mGycm, Automated exposure control for dose reduction was used. DATE OF EXAM: 12/03/2023 2:14 PM COMPARISON: CT head same day. CLINICAL INDICATION:Male, 58 years old with history of left eye pain, visual disturbance, ataxia; PHH , Dizziness with recent fall. Neck fusion this passed May. Difficulty with left eye vision. TECHNIQUE: Axially acquired helical CT angiogram of the head was obtained with contrast utilizing 75 cc of [id number]-[id number] administered intravenously. Axial images are supplemented with 3D reconstructions wh ich were post-processed at an independent workstation. FINDINGS: Vertebral arteries: The vertebral arteries are patent. Vertebral artery dominance: Codominant Basilar artery: The basilar artery is intact. The basilar artery bifurcation is normal. Internal Carotid arteries: The cervical, petrous, cavernous and supraclinoid segments are patent. Mil d atherosclerotic disease bilaterally ARAM: Patent with no evidence of aneurysm. ACOM: Present without evidence of aneurysm. MCA: Patent with no evidence of aneurysm. ADMINISTRATIVE SALES ASSISTANT: Patent with no evidence of aneurysm. Partial circulation identified on the left. PCOM: Patent. Dural sinuses: Patent. IMPRESSION: No evidence of significant stenosis or intracranial aneurysm.
[2023-12-03] MEDS: DEXAMETHASONE SOD PHOSPHATE 10 MG/ML 1 ML VIAL IVP STA (16:09)
[2023-12-03 17:33] VITALS: BP 128/93; PULSE 116; RESP 18; TEMP 98
== END 2023-12-03 17:13 | disposition other institution (70) ==
LOC: EC 11:49
DX: G93.6 Cerebral edema (principal); H53.2 Diplopia; R27.0 Ataxia, unspecified; I45.10 Unspecified right bundle-branch block; E11.69 Type 2 diabetes mellitus with other specified complication; M86.9 Osteomyelitis, unspecified; I50.9 Heart failure, unspecified; F17.200 Nicotine dependence, unspecified, uncomplicated
CPT/HCPCS: 36415; 93005; 80053; 84484; 85025; 72125; 70496; 70450; 99291; 96374; J1100; Q9967

== ENCOUNTER 2023-12-19 16:49 | Inpatient (IN) | payer OTHER ==
--- NOTE | 2023-12-19 17:32 | ED ---
Neuro HPI - General Chief Complaint: Neuro Symptoms/Deficit Stated Complaint: Slurred Speech Time Seen by Provider: 12/19/23 16:56 Source: patient, family Mode of arrival: wheelchair Limitations: no limitations - History of Present Illness Is the patient presenting with stroke symptoms?: Yes Last Known Well Date: 12/19/23 Last Known Well Time: 15:30 -: hour(s) Initial Comments: Chart is a 58-year-old gentleman who was recently seen in our hospital and transferred to an outside hospital after CT scan had revealed a possible left cerebellar mass, patient reports that his subsequent inpatient workup at [facility] revealed no mass but a stroke with some hemorrhage. Patient was also found to have some cardiac issues and was discharged home with a LifeVest. Patient's been doing well for 6 days since discharge. Daughter called him today around 330 and noted that he had slurred speech and difficulty with word finding. Daughter went home evaluated her dad noted that he had some right-sided facial droop and brought him to the ER for evaluation. - Related Data Home Medications: Home Medications Medication Instructions Recorded Confirmed Aspirin (Unknown Dose) 1 tab PO DIRECTED 12/19/23 12/19/23 Insulin Aspart [NovoLOG Flexpen] See Protocol SQ DIRECTED 12/19/23 12/19/23 Insulin Glargine,Hum.rec.anlog 40 units SQ DIRECTED 12/19/23 12/19/23 [Lantus Solostar Pen] Jardiance (Unknown Dose) 1 tab PO DIRECTED 12/19/23 12/19/23 Lipitor (Unknown Dose) 1 tab PO DIRECTED 12/19/23 12/19/23 Allergies/Adverse Reactions: Allergies Allergy/AdvReac Type Severity Reaction Status Date / Time No Known Allergies Allergy Verified 12/19/23 18:05 Review of Systems ROS Statement: Those systems with pertinent positive or pertinent negative responses have been documented in the HPI. ROS Other: All systems not noted in ROS Statement are negative. General Exam - General Exam Comments Initial Comments: Physical Exam GENERAL: Patient is well-developed and well-nourished. Patient is nontoxic and well-hydrated and is in no distress. HENT: Normocephalic, Atraumatic. Right-sided facial droop EYES: PERRL, EOMI PULMONARY: Unlabored respirations. No audible rales rhonchi or wheezing was noted. CARDIOVASCULAR: RRR LifeVest in place ABDOMEN: Soft and nontender with normal bowel sounds. SKIN: Skin is clear with no lesions or rashes and otherwise unremarkable. : Deferred NEUROLOGIC: NIH 3, right-sided facial droop, dysarthria and expressive aphasia Patient is alert and oriented x3. Moving all extremities spontaneously MUSCULOSKELETAL: Normal extremities with adequate strength and full range of motion. No lower extremity swelling or edema. No calf tenderness. PSYCHIATRIC: Normal psychiatric evaluation. Limitations: no limitations Stroke MDM - Lab Data Result diagrams: 12/19/23 17:24 12/19/23 17:24 Lab Results 12/19/23 12/19/23 12/19/23 Range/Units 17:24 17:24 17:24 WBC 8.7 (3.8-10.6) k/uL RBC 5.47 (4.30-5.90) m/uL Hgb 16.0 (13.0-17.5) gm/dL Hct 48.4 (39.0-53.0) % MCV 88.6 (80.0-100.0) fL MCH 29.3 (25.0-35.0) pg MCHC 33.1 (31.0-37.0) g/dL RDW 14.3 (11.5-15.5) % Plt Count 237 (150-450) k/uL MPV 7.8 Neutrophils % 72 % Lymphocytes % 18 % Monocytes % 5 % Eosinophils % 2 % Basophils % 1 % Neutrophils # 6.2 (1.3-7.7) k/uL Lymphocytes # 1.6 (1.0-4.8) k/uL Monocytes # 0.4 (0-1.0) k/uL Eosinophils # 0.2 (0-0.7) k/uL Basophils # 0.1 (0-0.2) k/uL PT 10.4 (10.0-12.5) sec INR 0.9 (<1.2) APTT 24.7 (22.0-30.0) sec Sodium 139 (137-145) mmol/L Potassium 4.5 (3.5-5.1) mmol/L Chloride 104 (98-107) mmol/L Carbon Dioxide 24 (22-30) mmol/L Anion Gap 11 mmol/L BUN 14 (9-20) mg/dL Creatinine 0.75 (0.66-1.25) mg/dL Est GFR (CKD-EPI)AfAm >90 (>60 ml/min/1.73 sqM) Est GFR (CKD-EPI)NonAf >90 (>60 ml/min/1.73 sqM) Glucose 267 H (74-99) mg/dL Calcium 9.6 (8.4-10.2) mg/dL Total Bilirubin 0.5 (0.2-1.3) mg/dL AST 22 (17-59) U/L ALT 30 (4-49) U/L Alkaline Phosphatase 73 (38-126) U/L Creatine Kinase 39 L (55-170) U/L Troponin I (0.000-0.034) ng/mL Total Protein 7.2 (6.3-8.2) g/dL Albumin 4.3 (3.5-5.0) g/dL 12/19/23 Range/Units 17:24 WBC (3.8-10.6) k/uL RBC (4.30-5.90) m/uL Hgb (13.0-17.5) gm/dL Hct (39.0-53.0) % MCV (80.0-100.0) fL MCH (25.0-35.0) pg MCHC (31.0-37.0) g/dL RDW (11.5-15.5) % Plt Count (150-450) k/uL MPV Neutrophils % % Lymphocytes % % Monocytes % % Eosinophils % % Basophils % % Neutrophils # (1.3-7.7) k/uL Lymphocytes # (1.0-4.8) k/uL Monocytes # (0-1.0) k/uL Eosinophils # (0-0.7) k/uL Basophils # (0-0.2) k/uL PT (10.0-12.5) sec INR (<1.2) APTT (22.0-30.0) sec Sodium (137-145) mmol/L Potassium (3.5-5.1) mmol/L Chloride (98-107) mmol/L Carbon Dioxide (22-30) mmol/L Anion Gap mmol/L BUN (9-20) mg/dL Creatinine (0.66-1.25) mg/dL Est GFR (CKD-EPI)AfAm (>60 ml/min/1.73 sqM) Est GFR (CKD-EPI)NonAf (>60 ml/min/1.73 sqM) Glucose (74-99) mg/dL Calcium (8.4-10.2) mg/dL Total Bilirubin (0.2-1.3) mg/dL AST (17-59) U/L ALT (4-49) U/L Alkaline Phosphatase (38-126) U/L Creatine Kinase (55-170) U/L Troponin I 0.013 (0.000-0.034) ng/mL Total Protein (6.3-8.2) g/dL Albumin (3.5-5.0) g/dL - NIH Stroke Scale 1a. Level of Consciousness: (0) alert 1b. LOC Questions: (0) answers correctly 1c. LOC Commands: (0) performs tasks correctly 2. Best Gaze: (0) normal 3. Visual: (0) no visual loss 4. Facial Palsy: (1) minor paralysis 5a. Motor Arm Left: (0) no drift 5b. Motor Arm Right: (0) no drift 6a. Motor Leg Left: (0) no drift 6b. Motor Leg Right: (0) no drift 7. Limb Ataxia: (0) absent 8. Sensory: (0) normal 9. Best Language: (1) mild/moderate aphasia 10. Dysarthria: (1) mild/moderate dysarthria 11. Extinction/Inattention: (0) no abnormality - Medical Decision Making Was pt. sent in by a medical professional or institution (, PA, LIQUID FLAVOR COMPOUNDER, urgent ca re, hospital, or penitentiary...) When possible be specific @ -No Did you speak to anyone other than the patient for history (EMS, parent, family, police, friend...)? What history was obtained from this source @ -Yes daughter Did you review nursing and triage notes (agree or disagree)? Why? @ -I reviewed and agree with nursing and triage notes Were old charts reviewed (outside hosp., previous admission, EMS record, old EKG, old radiological studies, urgent care reports/EKG's, penitentiary records)? Report findings @ -Previous ER visit here as well as chart from [facility] were reviewed c onfirmed patient had a ischemic stroke with hemorrhagic conversion noted on CT and MRI Differential Diagnosis (chest pain, altered mental status, abdominal pain women, abdominal pain men, vaginal bleeding, weakness, fever, dyspnea, syncope, headache, dizziness, GI bleed, back pain, seizure, CVA, palpatations, mental health)? @Differential Altered Mental Status: Hypoglycemia, DKA, hypercapnia, ETOH, overdose, CO poisoning, trauma, myxedema coma, HTN encephalopathy, infection, encephalitis, psychosis, intercranial hemorrhage, hepatic encephalopathy, meningitis, CVA, this is not meant to be an all-inclusive list EKG interpreted by me (3pts min.). @ -As above X-rays interpreted by me (1pt min.). @ -None done CT interpreted by me (1pt min.). @ -No obvious mass or hemorrhage U/S interpreted by me (1pt. min.). @ -None done What testing was considered but not performed or refused? (CT, X-rays, U/S, labs)? Why? @ -MRI can be completed inpatient What meds were considered but not given or refused? Why? @ -tPA was initially considered based on patient's presenting symptoms however given recent head CT with evidence of hemorrhage tPA is contraindicated Did you discuss the management of the patient with other professionals (professionals i.e. , PA, LIQUID FLAVOR COMPOUNDER, lab, RT, psych nurse, social work coordinator, range manager, teacher, desk officer, wrapper caser)? Give summary @ -Discussed with on-call interventional neurologist Dr Terrazas Was smoking cessation discussed for >3mins.? @ -No Was critical care preformed (if so, how long)? @ -Yes, 30 minutes Were there social determinants of health that impacted care today? How? (Homelessness, low income, unemployed, alcoholism, drug addiction, transpor tation, low edu. Level, literacy, decrease access to med. care, fpc, rehab)? @ -No Was there de-escalation of care discussed even if they declined (Discuss DNR or withdrawal of care, Hospice)? DNR status @ -No What co-morbidities impacted this encounter? (DM, HTN, Smoking, COPD, CAD, Cancer, CVA, ARF, Chemo, Hep., AIDS, mental health diagnosis, sleep apnea, morbid obesity)? @ -CAD, hyperlipidemia, hypertension, previous stroke Was patient admitted / discharged? Hospital course, mention meds given and route, prescriptions, significant lab abnormalities, going to OR and other pertinent info. @ -Admit Patient was seen and evaluated immediately upon arrival in the emergency department. Patient has acute onset of slurred speech, difficulty with word finding and right-sided facial droop. However patient had recent intra cranial hemorrhage therefore is not a candidate for tPA. Head CT reveals no signs of hemorrhage no significant abnormalities are noted. Patient to be admitted with neurology on consult for acute stroke. Undiagnosed new problem with uncertain prognosis? @ -Yes Drug Therapy requiring intensive monitoring for toxicity (Heparin, Nitro, Insulin, Cardizem)? @ -No Were any procedures done? @ -No Diagnosis/symptom? @ -Acute stroke Acute, or Chronic, or Acute on Chronic? @ -Acute Uncomplicated (without systemic symptoms) or Complicated (systemic symptoms)? @ -Default Side effects of treatment? @ -No Exacerbation, Progression, or Severe Exacerbation? @ -No Poses a threat to life or bodily function? How? (Chest pain, [place], [place], pneumonia, PE, COPD, DKA, ARF, appy, cholecystitis, CVA, Diverticulitis, Homicidal, Suicidal, threat to staff... and all critical care pts) @ -Yes - EKG Data -: EKG Interpreted by Me EKG interpreted by me, EKG obtained as part of stroke workup EKG obtained at 1704 rate is 87 rhythm is sinus with a right bundle branch block, no acute ST elevations or depressions no evidence of acute ischemia infarction or pathologic arrhythmia. Past Medical History Past Medical History: CVA/TIA, Diabetes Mellitus History of Any Multi-Drug Resistant Organisms: None Reported Past Surgical History: No Surgical Hx Reported Past Psychological History: No Psychological Hx Reported Smoking Status: Current every day smoker Past Alcohol Use History: Occasional Past Drug Use History: None Reported Course Vital Signs 12/19/23 12/19/23 12/19/23 16:53 17:00 17:10 Temperature 98 F Pulse Rate 80 95 Respiratory 16 20 22 Rate Blood Pressure 111/64 125/81 113/77 O2 Sat by Pulse 99 100 100 Oximetry 12/19/23 12/19/23 12/19/23 17:30 17:40 17:50 Temperature Pulse Rate 78 78 77 Respiratory 16 18 19 Rate Blood Pressure 92/80 104/66 98/66 O2 Sat by Pulse 100 99 99 Oximetry 12/19/23 12/19/23 18:00 18:40 Temperature Pulse Rate 78 80 Respiratory 18 16 Rate Blood Pressure 103/75 113/80 O2 Sat by Pulse 99 98 Oximetry Critical Care Time Critical Care Time: Yes Total Critical Care Time: 30 Disposition Clinical Impression: Cerebrovascular accident (CVA) Disposition: ADMITTED IP TO THIS HOSP Condition: Serious Is patient prescribed a controlled substance at d/c from ED?: No Referrals: [facility] [Primary Care Provider] - 1-2 days
[2023-12-19 17:35] LABS: Basophils # (A) 0.1 k/uL (0-0.2); Basophils % (A) 1 %; Eosinophils # (A) 0.2 k/uL (0-0.7); Eosinophils % (A) 2 %; HCT 48.4 % (39.0-53.0); Lymphocytes # (A) 1.6 k/uL (1.0-4.8); Lymphocytes % (A) 18 %; MCH 29.3 pg (25.0-35.0); MCHC 33.1 g/dL (31.0-37.0); MCV 88.6 fL (80.0-100.0); Mean Platelet Volume 7.8; Monocytes # (A) 0.4 k/uL (0-1.0); Monocytes % (A) 5 %; Neutrophils # (A) 6.2 k/uL (1.3-7.7); Neutrophils % (A) 72 %; Platelet Count 237 k/uL (150-450); RBC 5.47 m/uL (4.30-5.90); RDW 14.3 % (11.5-15.5); WBC 8.7 k/uL (3.8-10.6)
--- NOTE | 2023-12-19 17:37 | CT ---
EXAMINATION TYPE: CODE STROKE: CT brain wo contr DATE OF EXAM: 12/19/2023 COMPARISON: 12/03/2023 HISTORY: 58-year-old male neurologic deficit, acute, stroke suspected TECHNIQUE: Examination was done in axial plane without intravenous contrast. Coronal and sagittal r econstructions performed. CT DLP: 1157.6 mGycm Automated exposure control for dose reduction was used. FINDINGS: There is no evidence of acute intracranial hemorrhage, acute ischemic changes, mass, mass-effect, or extra-axial fluid collection. There is no effacement of cerebral sulci or basal subarachnoid cister ns. There is no hydrocephalus. There is no midline shift. Warren-white matter distinction is preserv ed. Residual mild patchy hypodensity remains within the inferior left cerebellar hemisphere. The associat ed mass effect and vasogenic edema with some rightward midline shift has resolved. Rightward nasal septal deviation. Mild mucosal thickening in the left maxillary infundibulum. Mastoid air cells well pneumatized. Orbits and globes are intact. IMPRESSION: 1. Mild residual patchy hypodensity inferior right cerebellum. The previous mass effect, vasogenic ed margarita, and rightward midline shift has resolved. Possibly relating to evolution to more chronic left ce rebellar infarct. Clinically correlate. 2. Otherwise, no acute intracranial abnormality seen.
--- NOTE | 2023-12-19 17:44 | CT ---
EXAMINATION TYPE: CODE STROKE: CTA head neck DATE OF EXAM: 12/19/2023 COMPARISON: CT brain same day and angiography 12/03/2023 HISTORY: 58-year-old male neurologic deficit, code stroke TECHNIQUE: Contiguous axial scanning of the head and neck performed with IV Contrast, patient injecte d with 65ml mL of Isovue 370. Coronal and sagittal MIP reconstructions performed. 3-D reconstructions generated on a dedicated independent workstation. CT DLP: 1634 mGycm Automated exposure control for dose reduction was used. FINDINGS: Neck: Mild emphysematous change in the visualized upper lungs. Extensive LAD coronary calcifications are pr esent. Large caliber to the visualized main right and left pulmonary arteries up to 2.8 cm suggesting underlying pulmonary arterial hypertension. Subcarinal adenopathy measuring 1.9 cm. Hilar adenopathy measuring up to 1.3 cm. Conventional arch vessel branching anatomy. Codominant vertebral arteries that are patent throughout their course. The bilateral common carotid arteries are patent. Mild atherosclerotic calcification and plaque within the origin of the bilateral internal carotid art eries without any significant narrowing. Remainder of the bilateral ICAs are patent. NASCET criteria was utilized. HEAD: The bilateral V4 segment vertebral arteries are patent. The basilar artery is patent. Shows mild dif fuse narrowing along the upper third segment. On the left, there is persistent origin to the posterior cerebral artery. On the right, there is a patent posterior communicating artery accompanied by a hypoplastic T1 segmen t supplying the P2 and more distal right posterior cerebral artery. Scattered mild atherosclerotic calcifications in the carotid siphons without significant narrowing. The anterior circulation is otherwise patent. Dural venous sinuses are patent. IMPRESSION: NECK: 1. ONLY MILD ATHEROSCLEROTIC CHANGE OF THE BILATERAL CAROTID BIFURCATIONS. OTHERWISE, WIDELY PATENT V ERTEBRAL CAROTID ARTERIES OF THE NECK. 2. COPD AND MILD EMPHYSEMA IN THE VISUALIZED UPPER LUNGS. PULMONARY ARTERY HYPERTENSION. 3. PARTIALLY VISUALIZED MEDIASTINAL AND HILAR ADENOPATHY MEASURING UP TO 1.9 CM. RECOMMEND 2-3 MONTH FOLLOW-UP CT CHEST TO REASSESS HEAD: 4. No large vessel intracranial arterial occlusion, significant stenosis, or aneurysmal change is see n. 5. Anatomic variation or persistent origin left MOLDER LABELS. 6. Also, a hypoplastic P1 segment right MOLDER LABELS combines with a patent right PCOM artery to supply a norm al right MOLDER LABELS.
[2023-12-19 17:56] LABS: ALT 30 U/L (4-49); AST 22 U/L (17-59); African American GFR (CKD) >90 (>60 ml/min/1.73 sqM); Albumin 4.3 g/dL (3.5-5.0); Alkaline Phosphatase 73 U/L (38-126); Anion Gap 11 mmol/L; Blood Urea Nitrogen 14 mg/dL (9-20); Calcium 9.6 mg/dL (8.4-10.2); Carbon Dioxide 24 mmol/L (22-30); Chloride 104 mmol/L (98-107); Creatine Kinase 39 U/L (55-170); Glucose 267 mg/dL (74-99); Non-African American GFR(CKD) >90 (>60 ml/min/1.73 sqM); Potassium 4.5 mmol/L (3.5-5.1); Sodium 139 mmol/L (137-145); Total Bilirubin 0.5 mg/dL (0.2-1.3); Total Protein 7.2 g/dL (6.3-8.2)
[2023-12-19 18:05] LABS: INR 0.9 (<1.2); Partial Thromboplastin Time 24.7 sec (22.0-30.0); Prothrombin Time 10.4 sec (10.0-12.5)
--- NOTE | 2023-12-19 18:13 | XR ---
EXAMINATION TYPE: XR chest 2V DATE OF EXAM: 12/19/2023 COMPARISON: 05/21/2023 HISTORY: 58-year-old male confusion, altered mental status TECHNIQUE: PA and lateral views FINDINGS: ACDF hardware. Heart upper limits of normal in size. Mild interstitial density is unchanged. Mild hyp erinflation. No consolidation or pleural effusion. IMPRESSION: Borderline heart size. Correlate for underlying COPD. There are otherwise chronic changes without acu te process seen.
[2023-12-19] MEDS ORDERED: NALOXONE 0.4 MG/ML 1 ML VIAL IV PRN (19:17)
[2023-12-20 00:57] LABS: Glucose,Whole Blood 194 mg/dL (70-110)
[2023-12-20] MEDS ORDERED: ONDANSETRON 4 MG/2 ML VIAL IVP PRN (01:32)
[2023-12-20] MEDS ORDERED: ACETAMINOPHEN TAB 325 MG TAB PO PRN (01:32)
[2023-12-20] MEDS ORDERED: ALPRAZolam 0.25 MG TAB PO PRN (01:32)
[2023-12-20] MEDS ORDERED: DEXTROSE 50% SYRINGE 50 ML IVP PRN ×2 (01:49)
--- NOTE | 2023-12-20 01:50 | P.HPIM ---
History of Present Illness H&P Date: 12/19/23 Chief Complaint: slurred speech 58-year-old male with diabetes mellitus recent hemorrhagic stroke CAD Patient presented to our hospital end of November was for headache dizziness unsteady gait at that time CAT scan of the head showed left cerebellar mass for which she was transferred to [facility] patient reports that upon further evaluation he was told that he has stroke with hemorrhagic conversion and he was also diagnosed with severe coronary artery disease including 100% LAD blockage no intervention was done due to the hemorrhagic stroke patient was placed on LifeVest due to left ventricular ejection fraction of 20% and was discharged home Over the past 6 days he claims that he has been doing well he was back to driving and running errands today he felt it was exceptionally cali day felt tired went back home early took a nap and then woke up as he was talking over the phone with his daughter and seems like he alerted his daughter due to slurred speech. She went over to his place and noticed that he has right facial droop for which she brought him to the hospital for evaluation Otherwise patient himself has very poor insight over his overall health status, he does not know what medication he takes he knows he takes insulin for diabetes. At time of my evaluation patient feels back to his normal self denies any slurred speech denies any new focal neurodeficits denies any headache changes in vision or hearing denies any shortness of breath chest pain nausea vomiting abdominal pain denies any GI bleeding. Denies any recent falls or head injury Patient admits to heavy tobacco smoking denies any alcohol or illicit drugs review of systems Pertinent positives as noted in HPI. All other systems were reviewed and are negative on exam Constitutional: No acute distress, conversant, pleasant Eyes: Anicteric sclerae, moist conjunctiva, Pupils equal round reactive to light ENMT: NC/AT Oropharynx clear, no erythema, or exudates Neck: Supple, no masses, or JVD No carotid bruits No thyromegaly Lungs: Clear to auscultation Clear to percussion Normal respiratory effort, no accessory muscle use Cardiovascular: Heart regular in rate and rhythm, No murmurs, gallops, or rubs No peripheral edema Abdominal: Soft Nontender, no guarding, rebound or rigidity Abdomen moving with respiration Normoactive bowel sounds Extremities: No digital cyanosis No clubbing Pedal pulses intact and symmetrical Radial pulses intact and symmetrical No calf tenderness Psychiatric: Alert and oriented to person, place and time Appropriate affect fair judgement Neuro Muscles Strength 5/5 in all 4 extremities Sensation to light touch grossly present throughout Cranial nerves II-XII grossly intact, there is slight asymmetry of the nasolabial fold patient claims that he looks normal when prompted to look into a mirror Finger-nose exam intact no dysmetria heel figueroa exam intact Past Medical History Past Medical History: CVA/TIA, Diabetes Mellitus History of Any Multi-Drug Resistant Organisms: None Reported Past Surgical History: Heart Catheterization, Orthopedic Surgery Additional Past Surgical History / Comment(s): states heart cath 12/06/23 with no intervention, "neck surgery for infection at C[facility]" Past Anesthesia/Blood Transfusion Reactions: No Reported Reaction Past Psychological History: No Psychological Hx Reported Smoking Status: Current every day smoker Past Alcohol Use History: Occasional Past Drug Use History: None Reported Medications and Allergies Home Medications Medication Instructions Recorded Confirmed Type Amiodarone [Cordarone] See Taper PO DIRECTED 12/19/23 12/19/23 History Apixaban [Eliquis] 5 mg PO DIRECTED 12/19/23 12/19/23 History Aspirin (Unknown Dose) 1 tab PO DIRECTED 12/19/23 12/19/23 History Aspirin EC [Ecotrin Low Dose] 81 mg PO DAILY 12/19/23 12/19/23 History Atorvastatin [Lipitor] 20 mg PO DAILY 12/19/23 12/19/23 History Empagliflozin [Jardiance] 10 mg PO DAILY 12/19/23 12/19/23 History Insulin Aspart [NovoLOG Flexpen] See Protocol SQ AC-TID 12/19/23 12/19/23 History Insulin Glargine,Hum.rec.anlog 40 units SQ DAILY 12/19/23 12/19/23 History [Lantus Solostar Pen] Jardiance (Unknown Dose) 1 tab PO DIRECTED 12/19/23 12/19/23 History Lipitor (Unknown Dose) 1 tab PO DIRECTED 12/19/23 12/19/23 History Metoprolol Tartrate [Lopressor] 25 mg PO DIRECTED 12/19/23 12/19/23 History Allergies Allergy/AdvReac Type Severity Reaction Status Date / Time metformin Allergy Unknown Verified 12/19/23 20:02 Physical Exam Vitals: Vital Signs Temp Pulse Pulse Resp BP BP Pulse Ox 12/20/23 00:04 87 16 112/75 98 12/19/23 21:39 87 16 109/74 12/19/23 18:40 80 16 113/80 98 12/19/23 18:00 78 18 103/75 99 12/19/23 17:50 77 19 98/66 99 12/19/23 17:40 78 18 104/66 99 12/19/23 17:30 78 16 92/80 100 12/19/23 17:10 22 113/77 100 12/19/23 17:00 95 20 125/81 100 12/19/23 16:53 98 F 80 16 111/64 99 Intake and Output 12/19/23 12/19/23 12/20/23 14:59 22:59 06:59 Other: Weight 86.183 kg 86.183 kg Results CBC & Chem 7: 12/19/23 17:24 12/19/23 17:24 Labs: Abnormal Lab Results - Last 24 Hours (Table) 12/19/23 12/20/23 Range/Units 17:24 00:53 Glucose 267 H (74-99) mg/dL POC Glucose (mg/dL) 194 H (70-110) mg/dL Creatine Kinase 39 L (55-170) U/L Thrombosis Risk Factor Assmnt - Choose All That Apply Any of the Below Risk Factors Present?: Yes Each Factor Represents 1 point: Age 41-60 years Other Risk Factors: No Other congenital or acquired thrombophilia - If yes, enter type in comment: No Thrombosis Risk Factor Assessment Total Risk Factor Score: 1 Thrombosis Risk Factor Assessment Level: Low Risk Assessment and Plan Assessment: 58-year-old male recent diagnosis of coronary artery disease, cerebellar stroke with hemorrhagic conversion 6 days ago, coming in for evaluation of recurrent slurred speech and right facial droop I discussed case with ED doctor and accepted the admission for TIA for neurology evaluation with anticipated length of stay less than 2 midnights Transient ischemic attack symptoms resolved Possible residual right nasolabial asymmetry versus normal variant Fall precautions PT evaluation Neurology evaluation CT angio of the head and neck no large vessel intracranial arterial occlusion or stenosis or aneurysm anatomic variation of persistent origin left INFANT ROOM TEACHER, mild atherosclerotic changes of the bilateral carotid bifurcation CT scan of the head showed mild residual patchy hypodensity inferior right cerebellum possibly relating to dilution to more chronic left cerebellar infarct otherwise no acute intracranial abnormalities Continue with neurochecks Monitor vital signs Cardiac monitoring Continue with statin Continue with aspirin Diabetes mellitus Insulin sliding scale Incidental finding of mediastinal and hilar adenopathy measuring up to 1.9 cm with recommendations for 2 to 3 months follow-up on chest CAT scan for reassessment Coronary artery disease Patient reports 100% LAD occlusion with no intervention Patient reports LVEF 20% status post LifeVest Verify records from [facility] Verify home medications not clear what active medications are most of them without dosage in the computer patient could not help with home medications Blood work overall unremarkable white count 8.7 hemoglobin 16 Sodium 139 potassium 4.5 BUN 14 creatinine 0.75 Tropes negative Full code DVT prophylaxis mechanical
[2023-12-20 06:30] LABS: Glucose,Whole Blood 220 mg/dL (70-110)
[2023-12-20] MEDS: INSULIN ASPART (NovoLOG) 100 UNIT/ML VIAL SQ SCH (06:47)
[2023-12-20] MEDS: SODIUM CHLORIDE 0.9% 1,000 ML IV SCH (06:47)
[2023-12-20] MEDS: ASPIRIN 81 MG PO SCH (08:30)
[2023-12-20] MEDS: ATORVASTATIN 20 MG TAB PO SCH (08:30)
[2023-12-20 08:47] VITALS: RESP 18; TEMP 98.2
[2023-12-20 11:48] LABS: Glucose,Whole Blood 153 mg/dL (70-110)
--- NOTE | 2023-12-20 12:28 | CA ---
Transthoracic Echo Report Name: Jose Lara Age: 58 Gender: M : 1965 Exam Date: 12/20/2023 08:47 Exam Location: [facility] Ht (in): 70 Wt (lb): 192 Ordering Physician: Roslyn Rao MD Attending/Referring Phys: [facility] Aide Janice Cavanaugh RDCS Procedure CPT: Indications: tia Cardiac Hx: Technical Quality: Contrast 1: Definity Total Dose (mL): 2 Contrast 2: Total Dose (mL): MEASUREMENTS (Male / Female) Normal Values 2D ECHO LV Diastolic Diameter PLAX 6.5 cm 4.2 - 5.9 / 3.9 - 5.3 cm LV Systolic Diameter PLAX 5.0 cm IVS Diastolic Thickness 1.0 cm 0.6 - 1.0 / 0.6 - 0.9 cm LVPW Diastolic Thickness 0.7 cm 0.6 - 1.0 / 0.6 - 0.9 cm LV Relative Wall Thickness 0.3 LVOT Diameter 2.6 cm Aortic Root Diameter 3.5 cm LA Systolic Diameter LX 5.2 cm 3.0 - 4.0 / 2.7 - 3.8 cm LA Volume 70.3 cm??? 18 - 58 / 22 - 52 cm??? LA Volume Index 33.6 cm???/m??? 16 - 28 cm???/m??? DOPPLER AV Peak Velocity 95.1 cm/s AV Peak Gradient 3.6 mmHg AV Mean Velocity 76.9 cm/s AV Mean Gradient 2.6 mmHg AV Velocity Time Integral 17.7 cm LVOT Peak Velocity 78.8 cm/s LVOT Peak Gradient 2.5 mmHg LVOT Velocity Time Integral 13.5 cm LVOT Stroke Volume 70.7 cm??? LVOT Stroke Volume Index 34.5 ml/m??? LVOT Cardiac Index 2808.0 cm???/min???m??? AV Area Cont Eq vti 4.0 cm??? AV Area Cont Eq pk 4.3 cm??? MV Area PHT 4.3 cm??? MR Peak Velocity 354.5 cm/s MR Peak Gradient 50.3 mmHg Mitral E Point Velocity 103.4 cm/s Mitral A Point Velocity 38.8 cm/s Mitral E to A Ratio 2.7 MV Deceleration Time 174.6 ms TR Peak Velocity 284.0 cm/s TR Peak Gradient 32.3 mmHg PV Peak Velocity 79.7 cm/s PV Peak Gradient 2.5 mmHg FINDINGS Left Ventricle Moderately increased left ventricular diastolic diameter. Left ventricular ejection fraction is estimated at 20-25 %. [place] akinetic. Left ventricular apical thrombus. Right Ventricle Right ventricular systolic pressure estimated at 46 mmhg. Right Atrium Normal right atrial size. Left Atrium Severely increased left atrial diameter. Mildly increased left atrial volume. Mildly increased left atrial area. Mitral Valve Mild mitral regurgitation. Aortic Valve Aortic valve not well visualized. Tricuspid Valve Mild tricuspid regurgitation. Pulmonic Valve No pulmonic regurgitation. Pericardium No pericardial effusion. Aorta Normal size aortic root. CONCLUSIONS Previous echo recorded on 05/21/2023. Severe LV dysfunction with an ejection fraction of 20-25% and dilated left ventricle Previewed by: Dr. Zackary Alston MD (Electronically Signed) Final Date: 20 December 2023 12:27
[2023-12-20 13:25] VITALS: BP 103/59; PULSE 84
--- NOTE | 2023-12-20 13:26 | P.CNNES ---
History of Present Illness Consult date: 12/20/23 Requesting physician: Hillary Magaña Reason for Consult: stroke History of Present Illness: This is a 58-year-old gentleman who presented emergency department because of slurred speech and difficulty getting his words out. Patient stated that he notices symptoms yesterday in afternoon and his symptoms resolved. The symptoms were noticed at 3 PM. This lasted a few hours yesterday. It seems the patient has multiple medical issues. He denies any headache, focal issues, any slurring the speech or speech difficulty any longer. She smokes 4 cigarettes daily. On 2023 the patient presents to our facility because of ataxia. He had a CT of the head which demonstrated vasogenic edema in the left cerebellum with the mass effect of the fourth ventricle. The patient was given Decadron. Patient was transferred to [facility]. Patient stated that he had multiple CTs as well as MRI and was told he had stroke with hemorrhagic conversion. Patient stated his symptoms improved. These tended to follow-up with a neurologist. He stated he was told that he had a blood clot in his heart and he was on heparin drip. He was discharged on Xarelto 5 mg twice a day. He is also on aspirin. He is also on Lipitor. 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 Some of the workup during his hospital visit consisted of: Initial laws serum glucoses to 267. I reviewed the rest of the blood workup during this hospital admission. CT of the head is reported as mild residual patchy hypodensity inferior right cerebellum. The previous mass effect, vasogenic edema and rightward midline shift has resolved. Possible relating to evolution to more chronic left cerebellar infarct. Clinically correlated. Otherwise no acute injury intracranial abnormality seen. I personally reviewed the CT and I felt regarding the right cerebellar was seen on one slice and I felt was debatable whether there is actually any old stroke but I did not appreciate any acute or subacute stroke. There is no bleed. CT angiography of the head is reported as no large vessel intracranial artery occlusion, significant stenosis or aneurysm changes seen. Anatomic variation or persistent origin left CORRECTIVE AND MANUAL ARTS THERAPIST. Also hypoplastic P1 segment right CORRECTIVE AND MANUAL ARTS THERAPIST combines with patent right P, artery to supply a normal right CORRECTIVE AND MANUAL ARTS THERAPIST. CT angiography of the neck is reported as only mild atherosclerotic change of the bilateral carotid bifurcation. Otherwise widely patent vertebral carotid arteries of the neck. COPD and mild emphysema and the visualized upper lung. Pulmonary artery hypertension. Partially visualized mediastinal and hilar adenopathy measuring up to 1.9 cm. Recommend 2-3 month follow-up chest to reassess after Review of Systems Review of system: The 12 point system was reviewed and apparent positive and negative per HPI. Past Medical History Past Medical History: CVA/TIA, Diabetes Mellitus History of Any Multi-Drug Resistant Organisms: None Reported Past Surgical History: Heart Catheterization, Orthopedic Surgery Additional Past Surgical History / Comment(s): states heart cath 12/06/23 with no intervention, "neck surgery for infection at C6" Past Anesthesia/Blood Transfusion Reactions: No Reported Reaction Past Psychological History: No Psychological Hx Reported Smoking Status: Current every day smoker Past Alcohol Use History: Occasional Past Drug Use History: None Reported Medications and Allergies Home Medications Medication Instructions Recorded Confirmed Type Amiodarone [Cordarone] See Taper PO DIRECTED 12/19/23 12/19/23 History Apixaban [Eliquis] 5 mg PO DIRECTED 12/19/23 12/19/23 History Aspirin (Unknown Dose) 1 tab PO DIRECTED 12/19/23 12/19/23 History Aspirin EC [Ecotrin Low Dose] 81 mg PO DAILY 12/19/23 12/19/23 History Atorvastatin [Lipitor] 20 mg PO DAILY 12/19/23 12/19/23 History Empagliflozin [Jardiance] 10 mg PO DAILY 12/19/23 12/19/23 History Insulin Aspart [NovoLOG Flexpen] See Protocol SQ AC-TID 12/19/23 12/19/23 History Insulin Glargine,Hum.rec.anlog 40 units SQ DAILY 12/19/23 12/19/23 History [Lantus Solostar Pen] Jardiance (Unknown Dose) 1 tab PO DIRECTED 12/19/23 12/19/23 History Lipitor (Unknown Dose) 1 tab PO DIRECTED 12/19/23 12/19/23 History Metoprolol Tartrate [Lopressor] 25 mg PO DIRECTED 12/19/23 12/19/23 History Allergies Allergy/AdvReac Type Severity Reaction Status Date / Time metformin Allergy Unknown Verified 12/19/23 20:02 Physical Examination - Vital Signs Vital Signs: Vital Signs Temp Pulse Pulse Resp BP BP Pulse Ox 12/20/23 12:00 84 18 103/59 98 12/20/23 08:00 98.2 F 83 18 102/66 99 12/20/23 07:46 97 12/20/23 04:47 83 16 101/67 97 12/20/23 00:04 87 16 112/75 98 12/19/23 21:39 87 16 109/74 12/19/23 18:40 80 16 113/80 98 12/19/23 18:00 78 18 103/75 99 12/19/23 17:50 77 19 98/66 99 12/19/23 17:40 78 18 104/66 99 12/19/23 17:30 78 16 92/80 100 12/19/23 17:10 22 113/77 100 12/19/23 17:00 95 20 125/81 100 12/19/23 16:53 98 F 80 16 111/64 99 Intake and Output 12/19/23 12/20/23 12/20/23 22:59 06:59 14:59 Intake Total 350 180 Balance 350 180 Intake: Intake, IV Titration 350 Amount Sodium Chloride 0.9% 1, 350 000 ml @ 100 mls/hr IV . Q10H [facility] Rx#:[id number] Oral 180 Other: Voiding Method Toilet Weight 86.183 kg 87.2 kg GENERAL: The patient is lying in bed and is not in acute distress. NEUROLOGICAL: Higher mental function: The patient is awake, alert, oriented to self, place and time. Patient is following commands. No aphasia and no neglect. Cranial nerves: The pupils are round, equal and reactive to light and accommodation. Visual cervantes are full to confrontation throughout. Extraocular movement is intact no nystagmus is noted. Facial sensation is normal to touch throughout. The facial strength is normal throughout. Hearing is normal bilaterally to hand rub. Tongue is midline and moved [id number] without any difficulty. No dysarthria is noted. Shoulder shrug is normal bilaterally. Motor: Gait is normal. The strength is left middle flexor weakness (old from cervical surgery per patient). Otherwise 5 over 5 throughout. Normal tone and bulk. Cerebellum: Normal finger to nose heel to figueroa bilaterally. Sensation: Sensation is normal to touch throughout. Reflexes (right/left): 1+ throughout. Plantars are downgoing bilaterally. Results - Laboratory Findings CBC and BMP: 12/19/23 17:24 03/12/24 17:24 Abnormal Lab Findings: Abnormal Labs 12/19/23 12/20/23 12/20/23 17:24 00:53 06:14 Glucose 267 H POC Glucose (mg/dL) 194 H 220 H Creatine Kinase 39 L 12/20/23 11:47 Glucose POC Glucose (mg/dL) 153 H Creatine Kinase Assessment and Plan Assessment: This is a 58-year-old gentleman who presented to our facility because of dysarthria and aphasia that he felt occurred on 12/19/2023 at around 3 PM and has resolved. Of note, on 12-03 at that time patient presented to our ED for ataxia and he had CT of the head which shows a left cerebellar vasogenic edema with mass effect on the fourth ventricle as a result he was transferred to [facility]. He was told he had a stroke with hemorrhagic conversion according to the patient. He also had further workup there and he was told he had a thrombus in the heart. Current CT yesterday shows improvement in the edema. Transient dysarthria and expressive aphasia likely due to TIA Reason left cerebellar vasogenic edema with mass effect on the fourth ventricle on 12-[address] and patient was transferred to [facility] and was told he had a stroke with hemorrhagic conversion according to the patient and no surgical intervention was needed History of recent reported cardiac thrombus and the patient is on Eliquis Heart failure with ejection fraction of 2024% History of cervical osteomyelitis over the C6 s/p surgical correction Diabetes mellitus Tobacco use Plan: MR the brain is ordered by the primary team is pending 2-D echo was reported as diffuse echo recorded on 05/21/2023. Severe left ventricle dysfunction with ejection fraction of 20-25% and dilated left ventricle. I ordered lipid panel Hemoglobin A1c is ordered by the primary team is pending Patient is resumed on his home medication of aspirin 81 mg. We'll defer the use of Xarelto to primary team. We'll consider switching aspirin 81 to Plavix 75 mg daily. I went on Lipitor from 20 mg to 40 mg. Continue neuro checks vessel cardiac monitoring PT OT and VP OF CUSTOMER EXPERIENCE STRATEGY are consulted The primary will attempt in obtain records from [facility]. Patient is counseled on tobacco cessation We'll defer the rest of the medical measure the primary team and other specialists For DVT prophylaxis the patient is not resume on Eliquis then recommend Lovenox or subcu heparin The plan is discussed with patient and primary attending. Thank you for the consultation. Time with Patient: Greater than 30
--- NOTE | 2023-12-20 16:32 | P.PN ---
Subjective Progress Note Date: 12/20/23 58-year-old male with PMH of hemorrhagic stroke, diabetes mellitus, CAD presents the ED for slurred speech. He was recently seen in the ED on 12/03 for unsteady gait. Brain CT at that time showed vasogenic edema involving the left cerebellar hemisphere. He was transferred to [facility] for higher level of care. He was found to have CVA with hemorrhagic conversion along with low EF of 20% requiring LifeVest and 100% LAD blockage with no intervention due to hemorrhagic CVA. He also reports being diagnosed with apical thrombus at that time. In the ED, he underwent extensive evaluation. BP was 130/90 with heart rate of 88, respiratory rate of 18, T-max 90 8F, 100% on room air. CBC, coag panel and CMP was performed which showed a glucose of 267. CPK was 39. Brain CT was done which showed mild residual patchy hypodensity inferior right cerebellum, previous mass effect, vasogenic edema and rightward midline shift resolved. CTA head and neck mild atherosclerotic change bilateral carotid, COPD and mild emphysema, hilar adenopathy of 1.9 cm, hypoplastic P1 segment right NEW ACCOUNTS BANKING REPRESENTATIVE combines with patent right PCOM artery to supply a normal right NEW ACCOUNTS BANKING REPRESENTATIVE. Patient is admitted for TIA vs CVA and Neurology evaluation. 12/19 Patient was seen and examined with Dr. Guidry at bedside. Symptoms resolved. He reports [facility] Unhappy about follow ups that were made one month out from discharge. Echo was done which showed EF 20-25% with apical thrombus. General: non toxic, no distress, appears at stated age Derm: warm, dry Head: atraumatic, normocephalic, symmetric Eyes: EOMI, no lid lag, anicteric sclera Mouth: no lip lesion, mucus membranes moist Cardiovascular: S1S2 reg, no murmur Lungs: Clear to auscultation bilateral, no rhonchi, no rales , no accessory muscle use Neuro: Mild right lower facial droop, CN 2-12 otherwise intact. Strength 5/5. S ensation intact to touch. Psych: Alert, oriented, appropriate affect Based on my assessment of this patient, this patient meets a high complexity level of care. Patient has a diagnosis of TIA severe exacerbation or progression of disease which poses a threat to life or bodily function. TIA HFrEF of 20-25% with LifeVest Apical thrombus CAD with reported 100% LAD occlusion DM with hyperglycemia History of hemorrhagic CVA Discussed with Dr. Guidry, obtain MRI brain (to be done tomorrow) and obtain records from [facility]. Discussed with CUAUHTEMOC Ivey regarding above plan. Continue ASA 81 mg PO QD, Lipitor 40 mg PO QD, Metoprolol 25 mg PO BID and Eliquis 5 mg PO BID. Highest BG 267 (admission). Continue ISS with accuchecks ACHS and hypoglycemic precautions. CODE STATUS: FULL CODE DVT Prophylaxis: Eliquis GI Prophylaxis: Designated medical POA if patient is not able to make medical decisions for themselves: I have reviewed the following process consultant notes: Neurology. I have reviewed the results of the following tests: Echo. I have ordered the following tests: MRI brain. I have discussed the care of this patient with the following independent historian: RN regarding obtaining records. I have independently interpreted the following test below: I have discussed the management of this patient with the following physician: Dr. Guidry as above. Objective - Vital Signs Vital signs: Vital Signs Temp 98.2 F 12/20/23 08:00 Pulse 84 12/20/23 12:00 Resp 18 12/20/23 12:00 BP 103/59 12/20/23 12:00 Pulse Ox 98 12/20/23 12:00 FiO2 Intake & Output 12/19/23 12/20/23 12/20/23 18:59 06:59 18:59 Intake Total 350 180 Balance 350 180 Weight 86.183 kg 87.2 kg Intake: Intake, IV Titration 350 Amount Sodium Chloride 0.9% 1, 350 000 ml @ 100 mls/hr IV . Q10H [facility] Rx#:[id number] Oral 180 Other: Voiding Method Toilet - Labs CBC & Chem 7: 12/19/23 17:24 12/19/23 17:24 Labs: Abnormal Lab Results - Last 24 Hours (Table) 12/19/23 12/20/23 12/20/23 Range/Units 17:24 00:53 06:14 Glucose 267 H (74-99) mg/dL POC Glucose (mg/dL) 194 H 220 H (70-110) mg/dL Creatine Kinase 39 L (55-170) U/L 12/20/23 Range/Units 11:47 Glucose (74-99) mg/dL POC Glucose (mg/dL) 153 H (70-110) mg/dL Creatine Kinase (55-170) U/L
[2023-12-20 19:35] LABS: Chol/HDL Ratio 3.74 Ratio; LDL Cholesterol,Calculated 132.8 mg/dL (0.0-131.0); VLDL Calculation 9.98 mg/dL (5.00-40.00)
[2023-12-20] MEDS ORDERED: METOPROLOL TARTRATE 25 MG TAB PO SCH (21:00)
[2023-12-20] MEDS ORDERED: APIXABAN 5 MG TAB PO SCH (21:00)
--- NOTE | 2023-12-21 07:29 | P.DS ---
Providers Date of admission: 12/19/23 19:19 Expected date of discharge: 12/21/23 Attending physician: Edilma Davenport, Consults: 12/19/23 19:17 Consult Physician Routine Consulting Provider: Leonel Guidry Consult Reason/Comments: stroke Do you want consulting provider notified?: Yes Primary care physician: [facility] Hospital Course: 58-year-old male with PMH of hemorrhagic stroke, diabetes mellitus, CAD presents the ED for slurred speech. He was recently seen in the ED on 12/03 for unsteady gait. Brain CT at that time showed vasogenic edema involving the left cerebellar hemisphere. He was transferred to [facility] for higher level of care. He was found to have CVA with hemorrhagic conversion along with low EF of 20% requiring LifeVest and 100% LAD blockage with no intervention due to hemorrhagic CVA. He also reports being diagnosed with apical thrombus at that time. In the ED, he underwent extensive evaluation. BP was 130/90 with heart rate of 88, respiratory rate of 18, T-max 90 8F, 100% on room air. CBC, coag panel and CMP was performed which showed a glucose of 267. CPK was 39. Brain CT was done which showed mild residual patchy hypodensity inferior right cerebellum, previous mass effect, vasogenic edema and rightward midline shift resolved. CTA head and neck mild atherosclerotic change bilateral carotid, COPD and mild em physema, hilar adenopathy of 1.9 cm, hypoplastic P1 segment right MARKETING CONTENT COORDINATOR combines with patent right PCOM artery to supply a normal right MARKETING CONTENT COORDINATOR. Patient is admitted for TIA vs CVA and Neurology evaluation. 12/19 Patient was seen and examined with Dr. Guidry at bedside. Symptoms resolved. He reports only some of his medications were [place] by [place]. Unhappy about follow ups that were made one month out from discharge. Echo was done which showed EF 20-25% with apical thrombus. Discussed with Dr. Guidry, plan to obtain MRI brain (to be done tomorrow) and obtain records from [facility]. Patient left AMA on 12/19. General: non toxic, no distress, appears at stated age Derm: warm, dry Head: atraumatic, normocephalic, symmetric Eyes: EOMI, no lid lag, anicteric sclera Mouth: no lip lesion, mucus membranes moist Cardiovascular: S1S2 reg, no murmur Lungs: Clear to auscultation bilateral, no rhonchi, no rales , no accessory muscle use Neuro: Mild right lower facial droop, CN 2-12 otherwise intact. Strength 5/5. Sensation intact to touch. Psych: Alert, oriented, appropriate affect Discharge Diagnosis: TIA HFrEF of 20-25% with LifeVest Apical thrombus CAD with reported 100% LAD occlusion DM with hyperglycemia History of hemorrhagic CVA Patient Condition at Discharge: Serious Plan - Discharge Summary New Discharge Prescriptions: No Action Insulin Aspart [NovoLOG Flexpen] See Protocol SQ AC-TID Jardiance (Unknown Dose) 1 tab PO DIRECTED Aspirin (Unknown Dose) 1 tab PO DIRECTED Lipitor (Unknown Dose) 1 tab PO DIRECTED Amiodarone [Cordarone] See Taper PO DIRECTED Apixaban [Eliquis] 5 mg PO DIRECTED Atorvastatin [Lipitor] 20 mg PO DAILY Insulin Glargine,Hum.rec.anlog [Lantus Solostar Pen] 40 units SQ DAILY Aspirin EC [Ecotrin Low Dose] 81 mg PO DAILY Empagliflozin [Jardiance] 10 mg PO DAILY Metoprolol Tartrate [Lopressor] 25 mg PO DIRECTED Discharge Medication List Amiodarone [Cordarone] See Taper PO DIRECTED 12/19/23 [History] Apixaban [Eliquis] 5 mg PO DIRECTED 12/19/23 [History] Aspirin (Unknown Dose) 1 tab PO DIRECTED 12/19/23 [History] Aspirin EC [Ecotrin Low Dose] 81 mg PO DAILY 12/19/23 [History] Atorvastatin [Lipitor] 20 mg PO DAILY 12/19/23 [History] Empagliflozin [Jardiance] 10 mg PO DAILY 12/19/23 [History] Insulin Aspart [NovoLOG Flexpen] See Protocol SQ AC-TID 12/19/23 [History] Insulin Glargine,Hum.rec.anlog [Lantus Solostar Pen] 40 units SQ DAILY 12/19/23 [History] Jardiance (Unknown Dose) 1 tab PO DIRECTED 12/19/23 [History] Lipitor (Unknown Dose) 1 tab PO DIRECTED 12/19/23 [History] Metoprolol Tartrate [Lopressor] 25 mg PO DIRECTED 12/19/23 [History] Follow up Appointment(s)/Referral(s): [facility] [Primary Care Provider] - 1-2 days Discharge Disposition: LEFT AGAINST MEDICAL ADVICE
[2023-12-21] MEDS ORDERED: ATORVASTATIN 40 MG TAB PO SCH (09:00)
== END 2023-12-20 16:41 | disposition left against medical advice (07) | DRG 69 ==
LOC: EC 16:49 → 3SCARD 19:19
PROVIDERS: ADMIT Internal Medicine; ATTEND Internal Medicine
DX: G45.9 Transient cerebral ischemic attack, unspecified (principal); I50.20 Unspecified systolic (congestive) heart failure; R47.01 Aphasia; Z28.310 Unvaccinated for COVID-19; Z28.21 Immunization not carried out because of patient refusal; Z71.6 Tobacco abuse counseling; F17.210 Nicotine dependence, cigarettes, uncomplicated; E11.9 Type 2 diabetes mellitus without complications; Z79.4 Long term (current) use of insulin; I11.0 Hypertensive heart disease with heart failure; Z79.84 Long term (current) use of oral hypoglycemic drugs; R47.81 Slurred speech; I51.3 Intracardiac thrombosis, not elsewhere classified; J43.9 Emphysema, unspecified; I25.82 Chronic total occlusion of coronary artery; R47.1 Dysarthria and anarthria; R47.02 Dysphasia; I27.21 Secondary pulmonary arterial hypertension; R29.810 Facial weakness; I25.10 Atherosclerotic heart disease of native coronary artery without angina pectoris; R59.0 Localized enlarged lymph nodes; R27.0 Ataxia, unspecified; R29.703 NIHSS score 3; Z86.19 Personal history of other infectious and parasitic diseases; Z79.01 Long term (current) use of anticoagulants; Z79.82 Long term (current) use of aspirin; Z79.899 Other long term (current) drug therapy; Z86.73 Personal history of transient ischemic attack (TIA), and cerebral infarction without residual deficits; Z53.29 Procedure and treatment not carried out because of patient's decision for other reasons
CPT/HCPCS: 36415; 70450; 70496; 70498; 71046; 80053; 80061; 82550; 83036; 84484; 85025; 85610; 85730; 93005; 93306; 94760; 99291